=== PATIENT | male | born 2000 | race Caucasian/White ===

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

== ENCOUNTER 2022-01-14 03:24 | Emergency (ER) | payer MEDICAID, OTHER ==
[~2022-01-14] VITALS: Ht 190 cm; Wt 97.7 kg
[2022-01-14 03:35] VITALS: BP 140/81
[2022-01-14] MEDS ORDERED: NALOXONE 2 MG/2 ML (NARCAN) SYR IV STA (03:55)
[2022-01-14] MEDS ORDERED: KETOROLAC 30 MG/ML VIAL IVP STA (03:55)
[2022-01-14] MEDS ORDERED: NS IV 1000 ML 1,000 ML IV SCH (04:00)
--- NOTE | 2022-01-14 04:08 | ED General ---
General Stated Complaint: SYNCOPE/BACK PAIN Source of Information: Patient, Old Records, Police Exam Limitations: Intoxication (methamphetamine abuse) History of Present Illness Date Seen by Provider: Jan 14, 2022 Time Seen by Provider: 03:28 Initial Comments 21-year-old male presenting with police in custody for medical clearance to go to shelter. He admits to using methamphetamines and states that he had not used any since Saturday morning. He denies ingesting any other substances or trying to swallow or ingest any methamphetamine tonight. He was in police custody and stated that he felt like he was going to pass out. He sat down the back of the cruiser and states he blinked his eyes and then woke back up and was having pain in his back like cramping. 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 He states he is sleepy and feels like he is having a hard time waking up. From review of his medical records he had similar presentations in August and September. He was having "seizure-like activity" with jerking of his arms and legs but he responded to voice and sternal rub as well as he was talking during his jerking movements of his head and limbs. He denies swallowing any drugs tonight or using any other substances than the Methamphetamines from Saturday. Timing/Duration: 1/2 Hour Modifying Factors: worse with Movement (makes his mid back hurt) Associated Systoms: No Chest Pain, No Cough, No Diaphoresis, No Fever/Chills, No Headaches, No Loss of Appetite, No Nausea/Vomiting, No Rash, No Shortness of Air; Syncope (reports passing out in the back of the police cruiser); No Weakness Allergies and Home Medications Allergies Uncoded Allergies: Z-Pack (Allergy, Unknown, 03/20/21) Patient Home Medication List Home Medication List Reviewed: Yes Ciprofloxacin HCl (Ciprofloxacin HCl) 500 Mg Tablet, 500 MG PO BID Prescribed by: TANYA WALLACE on 01/14/22 0434 Review of Systems Review of Systems Constitutional: see HPI EENTM: no symptoms reported Respiratory: No cough Cardiovascular: No chest pain Gastrointestinal: No nausea, No vomiting Genitourinary: decreased output Musculoskeletal: back pain (mid back pain around his kidneys) Skin: No rash Psychiatric/Neurological: See HPI Hematologic/Lymphatic: Denies Blood Clots Past Jxqxzwu-Mmawmf-Svlcjj Hx Patient Social History Substance use?: Yes Substance type: Methamphetamine, Marijuana Substance frequency: Daily Seasonal Allergies Seasonal Allergies: No Past Medical History Surgery/Hospitalization HX: Methamphetamine abuse, Dental caries Surgeries: No Respiratory: No Cardiac: No Neurological: No Genitourinary: No Gastrointestinal: No Musculoskeletal: No Endocrine: No HEENT: No Cancer: No Psychosocial: No Integumentary: No Physical Exam Vital Signs Vital Signs - First Documented 01/14/22 03:35 Temp 36.3 Pulse 84 Resp 18 B/P (MAP) 140/81 (100) Pulse Ox 99 O2 Delivery Room Air Capillary Refill : Height, Weight, BMI Height: '" Weight: lbs. oz. kg; 37.00 BMI Method: General Appearance: No Apparent Distress, Other (slow to answer questions) Eyes: Bilateral Eye PERRL, Bilateral Eye EOMI HEENT: No Moist Mucous Membranes (slightly dry mucous membranes) Neck: Full Range of Motion, Normal Inspection, Non Tender, Supple Respiratory: Chest Non Tender, Lungs Clear, Normal Breath Sounds, No Accessory Muscle Use, No Respiratory Distress Cardiovascular: Regular Rate, Rhythm, Normal Peripheral Pulses Gastrointestinal: Normal Bowel Sounds, No Pulsatile Mass, Non Tender, Soft Rectal: Deferred Back: CVA Tenderness (L), CVA Tenderness (R) Extremity: Normal Capillary Refill, Normal Inspection, No Pedal Edema Neurologic/Psychiatric: Alert, Oriented x3, psychiatric technician assistant II-XII Norm as Tested, Other (flat affect) Skin: Normal Color, Warm/Dry Progress/Results/Core Measures Suspected Sepsis SIRS Temperature: Pulse: Respiratory Rate: Laboratory Tests 01/14/22 03:55: White Blood Count 10.7 Blood Pressure / Mean: Laboratory Tests 01/14/22 03:55: Creatinine 1.06, Platelet Count 228, Total Bilirubin 1.6H Results/Orders Lab Results Laboratory Tests Test 01/14/22 03:55 01/14/22 04:00 Range/Units White Blood Count 10.7 4.3-11.0 10^3/uL Red Blood Count 5.53 H 4.30-5.52 10^6/uL Hemoglobin 15.7 13.3-17.7 g/dL Hematocrit 47 40-54 % Mean Corpuscular Volume 85 80-99 fL Mean Corpuscular Hemoglobin 28 25-34 pg Mean Corpuscular Hemoglobin Concent 34 32-36 g/dL Red Cell Distribution Width 13.6 10.0-14.5 % Platelet Count 228 130-400 10^3/uL Mean Platelet Volume 10.1 9.0-12.2 fL Neutrophils (%) (Auto) 57 42-75 % Lymphocytes (%) (Auto) 28 12-44 % Monocytes (%) (Auto) 10 0-12 % Eosinophils (%) (Auto) 5 0-10 % Basophils (%) (Auto) 1 0-10 % Neutrophils # (Auto) 6.1 1.8-7.8 X 10^3 Lymphocytes # (Auto) 3.0 1.0-4.0 X 10^3 Monocytes # (Auto) 1.1 H 0.0-1.0 X 10^3 Eosinophils # (Auto) 0.5 H 0.0-0.3 10^3/uL Basophils # (Auto) 0.1 0.0-0.1 10^3/uL Sodium Level 137 135-145 MMOL/L Potassium Level 3.9 3.6-5.0 MMOL/L Chloride Level 102 98-107 MMOL/L Carbon Dioxide Level 25 21-32 MMOL/L Anion Gap 10 5-14 MMOL/L Blood Urea Nitrogen 20 H 7-18 MG/DL Creatinine 1.06 0.60-1.30 MG/DL Estimat Glomerular Filtration Rate 104 BUN/Creatinine Ratio 19 Glucose Level 109 H 70-105 MG/DL Calcium Level 9.6 8.5-10.1 MG/DL Corrected Calcium 9.2 8.5-10.1 MG/DL Magnesium Level 2.1 1.6-2.4 MG/DL Total Bilirubin 1.6 H 0.1-1.0 MG/DL Aspartate Amino Transf (AST/SGOT) 12 5-34 U/L Alanine Aminotransferase (ALT/SGPT) 12 0-55 U/L Alkaline Phosphatase 85 40-136 U/L Total Protein 7.2 6.4-8.2 GM/DL Albumin 4.5 3.2-4.5 GM/DL Salicylates Level < 0.3 L 5.0-20.0 MG/DL Acetaminophen Level < 10 L 10-30 UG/ML Serum Alcohol < 10 <10 MG/DL Urine Color YELLOW Urine Clarity CLEAR Urine pH 6.0 5-9 Urine Specific [place] >=1.030 1.016-1.022 Urine Protein TRACE H NEGATIVE Urine Glucose (UA) NEGATIVE NEGATIVE Urine Ketones NEGATIVE NEGATIVE Urine Nitrite NEGATIVE NEGATIVE Urine Bilirubin NEGATIVE NEGATIVE Urine Urobilinogen 1.0 < = 1.0 MG/DL Urine Leukocyte Esterase NEGATIVE NEGATIVE Urine RBC (Auto) NEGATIVE NEGATIVE Urine RBC 0-2 /HPF Urine WBC 10-25 H /HPF Urine Squamous Epithelial Cells 0-2 /HPF Urine Crystals NONE /LPF Urine Bacteria FEW H /HPF Urine Casts NONE /LPF Urine Mucus MODERATE H /LPF Urine Other SPERM PRESENT /HPF Urine Culture Indicated YES Urine Opiates Screen NEGATIVE NEGATIVE Urine Oxycodone Screen NEGATIVE NEGATIVE Urine Methadone Screen NEGATIVE NEGATIVE Urine Propoxyphene Screen NEGATIVE NEGATIVE Urine Barbiturates Screen NEGATIVE NEGATIVE Ur Tricyclic Antidepressants Screen NEGATIVE NEGATIVE Urine Phencyclidine Screen NEGATIVE NEGATIVE Urine Amphetamines Screen POSITIVE H NEGATIVE Urine Methamphetamines Screen POSITIVE H NEGATIVE Urine Benzodiazepines Screen NEGATIVE NEGATIVE Urine Cocaine Screen NEGATIVE NEGATIVE Urine Cannabinoids Screen NEGATIVE NEGATIVE My Orders Orders - TANYA WALLACE MD Ua Culture If Indicated (01/14/22 03:55) Cbc With Automated Diff (01/14/22 03:55) Comprehensive Metabolic Panel (01/14/22 03:55) Alcohol (01/14/22 03:55) Drug Screen Stat (Urine) (01/14/22 03:55) Acetaminophen (01/14/22 03:55) Salicylate (01/14/22 03:55) Ed Iv/Invasive Line Start (01/14/22 03:55) Ns Iv 1000 Ml (Sodium Chloride 0.9%) (01/14/22 04:00) Naloxone Injection (Narcan Injection) (01/14/22 03:55) Ketorolac Injection (Toradol Injection) (01/14/22 03:55) Magnesium (01/14/22 04:02) Urine Culture (01/14/22 04:00) Ceftriaxone 1 Gm Pre-Mix (Rocephin 1 Gm (01/14/22 04:34) Ns Iv 1000 Ml (Sodium Chloride 0.9%) (01/14/22 04:34) Neis Cr Dna Urine Test (01/14/22 04:47) Chlamydia Trachomatis Urine (01/14/22 04:47) Vital Signs/I&O 01/14/22 01/14/22 03:35 05:14 Temp 36.3 Pulse 84 71 Resp 18 B/P (MAP) 140/81 (100) 126/63 Pulse Ox 99 99 O2 Delivery Room Air Capillary Refill : Progress Note #1: Progress Note with his complaint of back pain and feeling like he passed out will check labs and give IVF for hydration. Toradol for back pain. Check urine for infection and hydration as well as other drugs in his system. Narcan 2 mg IV in case he had narcotics in his system to be making him feel like he can not stay awake. He may also just be crashing from his methamphetamine abuse. From review of his previous ED visits in and September he had Methamphetamines in his system and was dehydrated. He was having similar symptoms of not wanting to wake up and just wanting to sleep as well as the jerking movements of his arms and legs. He had CT scan of his head in August that had motion artifact but no acute abnormality. Progress Note #2: Time: 04:18 Progress Note CBC stable without acute significant abnormality. Urinalysis is concentrated with specific gravity greater than 1.030. He did have 10-25 white blood cells few bacteria but no nitrites or leukocyte esterase in his urinalysis. A culture was reflexed due to the white blood cells and few bacteria. Continue with IV fluids and hydration while awaiting rest of labs. Patient had no significant change from administration of Narcan. Progress Note #3: Time: 04:28 Progress Note Chemistry stable without acute significant abnormality. His magnesium was normal at 2.1. His drug screen was positive for methamphetamines and amphetamines. His alcohol, acetaminophen, salicylate levels were all 0. With his urine being concentrated will give an additional liter bolus and start an antibiotic for possible urine infection. After the antibiotic and second liter of fluid will discharge patient to the custody of the police. He is medically clear and stable with signs of dehydration and methamphetamine abuse as well as possible urinary tract infection. Progress Note #4: Time: 04:48 Progress Note When updating the patient about his results he was waking up and speaking more clearly. He requested testing for sexually transmitted infection stating he was concerned that he may have a STI as he had unprotected sex recently. 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 This would be consistent with his actions of "crashing" from not sleeping and being dehydrated from his methamphetamine abuse. Progress Note #5: Time: 05:18 Progress Note Patient was not able to provide additional urine for gonorrhea and Chlamydia testing. The initial urine culture was still pending. Continue with treatment Cipro as an outpatient and encourage patient to follow-up for additional testing Departure Impression Primary Impression: Medical clearance for incarceration Additional Impressions: Methamphetamine intoxication Dehydration Bacteriuria Disposition: 01 HOME, SELF-CARE Condition: Stable Departure-Patient Inst. Decision time for Depature: 04:50 Referrals: CARL HARRIS DO (PCP/Family) Primary Care Physician Patient Instructions: Dehydration, Adult ED, Drug Abuse and Drug Addiction (DC), Methamphetamine Add. Discharge Instructions: Medically stable for incarceration Avoid methamphetamines and drug abuse. Drink plenty of water and stay well hydrated. You were given a dose of antibiotics for bacteria in your urine. Finish course of antibiotics to treat for infection in urine. Testing to culture your urine and grow out bacteria in your urine will take 2-3 days to get those results. If you need additional or different antibiotics you will get a call once those results are back with the lab. Scripts Ciprofloxacin HCl (Ciprofloxacin HCl) 500 Mg Tablet 500 MG PO BID for UTI for 5 Days, #10 TAB 0 Refills Prov: TANYA WALLACE MD 01/14/22 TANYA WALLACE MD Jan 14, 2022 04:08
[2022-01-14 04:09] LABS: BILIRUBIN,URINE NEGATIVE (NEGATIVE); CLARITY,URINE CLEAR; COLOR,URINE YELLOW; GLUCOSE, URINE (UA) NEGATIVE (NEGATIVE); KETONES,URINE NEGATIVE (NEGATIVE); LEUKOCYTE ESTERASE ,URINE NEGATIVE (NEGATIVE); NITRITE,URINE NEGATIVE (NEGATIVE); PROTEIN,URINE TRACE (NEGATIVE)
[2022-01-14 04:10] LABS: HEMATOCRIT 47 % (40-54); HEMOGLOBIN 15.7 g/dL (13.3-17.7); MEAN CORPUSCULAR HEMOGLOBIN 28 pg (25-34); MEAN CORPUSCULAR HGB CONC 34 g/dL (32-36); MEAN CORPUSCULAR VOLUME 85 fL (80-99); WHITE BLOOD COUNT 10.7 10^3/uL (4.3-11.0)
[2022-01-14 04:11] LABS: BASOPHILS # (AUTO) 0.1 10^3/uL (0.0-0.1); BASOPHILS % (AUTO) 1 % (0-10); EOSINOPHILS # (AUTO) 0.5 10^3/uL (0.0-0.3); EOSINOPHILS % (AUTO) 5 % (0-10); LYMPHOCYTES % (AUTO) 28 % (12-44); MEAN PLATELET VOLUME 10.1 fL (9.0-12.2); MONOCYTES # (AUTO) 1.1 X 10^3 (0.0-1.0); MONOCYTES % (AUTO) 10 % (0-12); NEUTROPHILS # (AUTO) 6.1 X 10^3 (1.8-7.8); NEUTROPHILS % (AUTO) 57 % (42-75); PLATELET COUNT 228 10^3/uL (130-400)
[2022-01-14 04:15] LABS: BACTERIA,URINE FEW /HPF; RBC,URINE 0-2 /HPF; SQUAMOUS EPITHELIAL CELL,UR 0-2 /HPF
[2022-01-14 04:16] LABS: URINE OTHER SPERM PRESENT /HPF
[2022-01-14 04:21] LABS: AMPHETAMINE SCREEN, URINE POSITIVE (NEGATIVE); BARBITURATE SCREEN URINE NEGATIVE (NEGATIVE); BENZODIAZEPINES SCREEN URINE NEGATIVE (NEGATIVE); CANNABINOID SCREEN, URINE NEGATIVE (NEGATIVE); COCAINE SCREEN URINE NEGATIVE (NEGATIVE); METHADONE STAT NEGATIVE (NEGATIVE); OPIATE SCREEN URINE NEGATIVE (NEGATIVE); OXYCODONE STAT NEGATIVE (NEGATIVE); PROPOXYPHENE STAT NEGATIVE (NEGATIVE); TRICYCLIC ANTIDEPRESSANTS SCRE NEGATIVE (NEGATIVE)
[2022-01-14 04:26] LABS: ALANINE AMINOTRANSFERASE 12 U/L (0-55); ALKALINE PHOSPHATASE 85 U/L (40-136); BILIRUBIN,TOTAL 1.6 MG/DL (0.1-1.0); BUN/CREATININE RATIO 19; CALCIUM 9.6 MG/DL (8.5-10.1); CARBON DIOXIDE 25 MMOL/L (21-32); CHLORIDE 102 MMOL/L (98-107); CREATININE SERUM 1.06 MG/DL (0.60-1.30); GFR ESTIMATED 104; GLUCOSE 109 MG/DL (70-105); POTASSIUM 3.9 MMOL/L (3.6-5.0); SODIUM 137 MMOL/L (135-145)
[2022-01-14 04:27] LABS: ACETAMINOPHEN < 10 UG/ML (10-30); ALBUMIN 4.5 GM/DL (3.2-4.5); SALICYLATE < 0.3 MG/DL (5.0-20.0); TOTAL PROTEIN 7.2 GM/DL (6.4-8.2)
[2022-01-14] MEDS ORDERED: NS IV 1000 ML 1,000 ML IV STA (04:34)
[2022-01-14] MEDS ORDERED: cefTRIAXone 1 GM PRE-MIX 50 ML IV STA (04:34)
[2022-01-14] MEDS ORDERED: CIPR500T5 PO (04:34)
== END 2022-01-14 05:25 | disposition home or self-care (01) ==
LOC: EDUNIT# 03:24 → ER FS 03:33
DX: F15.229 Other stimulant dependence with intoxication, unspecified; R82.71 Bacteriuria; E86.0 Dehydration; Z28.310 Unvaccinated for COVID-19
CPT/HCPCS: 36415; 80053; 80306; 81000; 83735; 85025; 87088; 87491; 87591; 99284; G0480 ×3; 80320; 80329

== ENCOUNTER 2022-02-05 22:05 | Emergency (ER) | payer MEDICAID ==
[~2022-02-05] VITALS: Ht 182.8 cm; Wt 94.8 kg
[~2022-02-05 22:05] MED LIST: CIPR500T5 PO
[2022-02-05 22:12] VITALS: BP 143/92
[2022-02-05] MEDS ORDERED: LIDOCAINE 2% VISCOUS 15 ML UDC MM ONE (22:15)
[2022-02-05] MEDS ORDERED: RX-NEO/POLYB/HC OTIC (CORTISPORIN) SUSP 10 ML BTL ONE (22:34)
[2022-02-05] MEDS ORDERED: RX-NEO/POLYB/HC OTIC (CORTISPORIN) SUSP 10 ML BTL OT STA (22:35)
--- NOTE | 2022-02-05 22:39 | ED EENT ---
History of Present Illness General Chief Complaint: Ear Problems Stated Complaint: FOREIGN BODY L EAR Nursing Triage Note: Patient states that he was mowing today when he felt like something flew into his left ear. Patient states that he felt fluttering in his ear. Patient is having pain. Source: patient Exam Limitations: no limitations History of Present Illness Date Seen by Provider: Feb 05, 2022 Time Seen by Provider: 22:09 Initial Comments 21-year-old male patient with history of asthma complaining of left ear foreign body sensation. Patient states he was mowing the grass and felt like something flew into his left ear with fluttering in his ear. Patient complaining of pain without feeling of crawling in his ear. Patient did not try to remove foreign body from his ear. Allergies and Home Medications Allergies Uncoded Allergies: Z-Pack (Allergy, Unknown, 03/20/21) Patient Home Medication List Home Medication List Reviewed: Yes Ciprofloxacin HCl (Ciprofloxacin HCl) 500 Mg Tablet, 500 MG PO BID Prescribed by: TANYA WALLACE on 01/14/22 0434 Review of Systems Review of Systems Constitutional: no symptoms reported Eyes: No Symptoms Reported Ears: See HPI Nose: no symptoms reported Mouth: no symptoms reported Throat: no symptoms reported Respiratory: no symptoms reported Cardiovascular: no symptoms reported Gastrointestinal: no symptoms reported Musculoskeletal: no symptoms reported Neurological: No Symptoms Reported All Other Systems Reviewed Negative Unless Noted: Yes Past Bywfkeg-Strtfx-Dgtaqo Hx Patient Social History Tobacco Use?: Yes Tobacco type used: Cigarettes Smoking Status: Current Everyday Smoker Substance use?: Yes Substance type: Marijuana Alcohol Use?: No Pt feels they are or have been: No Seasonal Allergies Seasonal Allergies: No Past Medical History Surgery/Hospitalization HX: Methamphetamine abuse, Dental caries Surgeries: No Respiratory: No Cardiac: No Neurological: No Genitourinary: No Gastrointestinal: No Musculoskeletal: No Endocrine: No HEENT: No Cancer: No Psychosocial: No Integumentary: No Physical Exam Vital Signs Vital Signs - First Documented 02/05/22 22:12 Temp 37.0 Pulse 102 Resp 14 B/P (MAP) 143/92 (109) Pulse Ox 100 O2 Delivery Room Air Height, Weight, BMI Height: '" Weight: lbs. oz. kg; 28.00 BMI Method: General Appearance: mild distress Eyes: bilateral eye normal inspection Ears: left ear canal normal (Erythema), left ear erythema, left ear tenderness; bilateral ear auricle normal, bilateral ear TM normal Nose: normal inspection Mouth/Throat: normal mouth inspection Neck: non-tender Cardiovascular: regular rate, rhythm, no edema Respiratory: chest non-tender, lungs clear, normal breath sounds Progress/Results/Core Measures Results/Orders My Orders Orders - CHIP EISENBERG MD Lidocaine 2% Viscous 15 Ml (Xylocaine Vi (02/05/22 22:15) Ibuprofen Tablet (Motrin Tablet) (02/05/22 22:45) Rx-Gene/Poly/Hc Otic Susp (Rx-Cortisporin (02/05/22 22:35) Rx-Gene/Poly/Hc Otic Susp (Rx-Cortisporin (02/05/22 22:34) Medications Given in ED Current Medications Medications Dose Ordered Sig/Mary Ellen Route Start Time Stop Time Status Last Admin Dose Admin Lidocaine HCl 5 ml ONCE ONCE MM 02/05/22 22:15 02/05/22 22:16 DC 02/05/22 22:19 5 ML Vital Signs/I&O 02/05/22 22:12 Temp 37.0 Pulse 102 Resp 14 B/P (MAP) 143/92 (109) Pulse Ox 100 O2 Delivery Room Air Blood Pressure Mean: 109 Progress Progress Note : Progress Note Evaluation of patient in ER showed 21-year-old male patient with foreign body sensation in left ear. Patient had ear irrigation without any return of foreign. Patient had mild erythema and edema of ear canal and treated for otitis externa with Cortisporin otic 4 drops in left ear in ER and remaining of the medicine dispensed for using 4 times daily for 5 days. Departure Impression Primary Impression: Left otitis externa Qualified Codes: H60.92 - Unspecified otitis externa, left ear Disposition: HOME, SELF-CARE Condition: Stable Departure-Patient Inst. Referrals: CARL HARRIS DO (PCP/Family) Primary Care Physician Patient Instructions: How to Use Ear Drops, Outer Ear Infection Add. Discharge Instructions: Use dispensed eardrop 4 drops in left ear every 6 hours for 5 days May take [id number] Tylenol or ibuprofen as needed for pain Follow-up with primary care physician return to ER as needed All discharge instructions reviewed with patient and/or family. Voiced understanding. CHIP EISENBERG MD Feb 05, 2022 22:39
[2022-02-05] MEDS ORDERED: IBUPROFEN 800 MG (MOTRIN) TAB PO ONE (22:45)
== END 2022-02-05 22:43 | disposition home or self-care (01) ==
LOC: EDUNIT# 22:05 → ER FS 22:07
DX: H60.92 Unspecified otitis externa, left ear (principal); F17.210 Nicotine dependence, cigarettes, uncomplicated; Z88.1 Allergy status to other antibiotic agents; Z28.310 Unvaccinated for COVID-19
CPT/HCPCS: 99283

== ENCOUNTER 2022-04-23 03:06 | Emergency (ER) | payer MEDICAID ==
[~2022-04-23] VITALS: Ht 185.4 cm; Wt 94.8 kg
--- NOTE | 2022-04-23 03:27 | ED Abdominal Pain ---
General Chief Complaint: Abdominal/GI Problems Stated Complaint: SIDE PAIN History of Present Illness Date Seen by Provider: Apr 23, 2022 Time Seen by Provider: 03:25 Initial Comments 21-year-old male presents to ER with complaints of right upper abdominal pain. Started about 5 minutes prior to admission here. Patient felt like maybe it was just a bowel movement. He did have a bowel movement here in the ER states he felt better but is still having that pain. No nausea. Ate a bunch of rice and beans yesterday. Denies any chest pain shortness of breath. Does smoke. Occasionally smokes some weed. He used to use meth but states he does not use anymore. No alcohol. No fever or chills. No cough. No pain with urination. Allergies and Home Medications Allergies Uncoded Allergies: Z-Pack (Allergy, Unknown, 03/20/21) Patient Home Medication List Home Medication List Reviewed: Yes No Active Prescriptions or Reported Meds Review of Systems Review of Systems Constitutional: see HPI Past Gytsgtl-Jlrhip-Lsthly Hx Patient Social History Tobacco Use?: Yes Smoking Status: Current Everyday Smoker Seasonal Allergies Seasonal Allergies: No Past Medical History Surgery/Hospitalization HX: Methamphetamine abuse, Dental caries Surgeries: No Respiratory: No Cardiac: No Neurological: No Genitourinary: No Gastrointestinal: No Musculoskeletal: No Endocrine: No HEENT: No Cancer: No Psychosocial: No Integumentary: No Physical Exam Vital Signs Vital Signs - First Documented 04/23/22 03:08 Temp 36.3 Pulse 130 Resp 20 B/P (MAP) 152/97 (115) Pulse Ox 100 O2 Delivery Room Air Capillary Refill : Height/Weight/BMI Height: '" Weight: lbs. oz. kg; 28.00 BMI Method: General Appearance: WD/WN, mild distress HEENT: PERRL/EOMI Neck: non-tender, supple Respiratory: lungs clear, normal breath sounds Cardiovascular: regular rate, rhythm, no murmur Gastrointestinal: normal bowel sounds, guarding, tenderness (right upper quadrant. ) Progress/Results/Core Measures Results/Orders My Orders Orders - JOHN BENÍTEZ MD Ct Abdomen Wo (04/23/22 03:27) Ed Iv/Invasive Line Start (04/23/22 03:28) Cbc And Manual Diff (04/23/22 03:28) Comprehensive Metabolic Panel (04/23/22 03:28) Lipase (04/23/22 03:28) Hs C Reactive Protein (04/23/22 03:28) Vital Signs/I&O 04/23/22 04/23/22 03:08 03:35 Temp 36.3 36.3 Pulse 130 101 Resp 20 20 B/P (MAP) 152/97 (115) 130/80 Pulse Ox 100 100 O2 Delivery Room Air Room Air Progress Progress Note : Time: 03:50 Progress Note Patient was seen and examined. We ordered CT PE and lab work. Patient did request to discharge out AMA. We discussed that AMA meant that if there is some wrong he could be worse and delaying diagnosis could cause worsening outcome. Patient stated he did not like to take his chances. Patient signed the form. Patient left AMA Departure Impression Primary Impression: Abdominal pain Disposition: AGAINST MEDICAL ADVICE Condition: Against Medical Advice Departure-Patient Inst. Decision time for Depature: 04:00 Referrals: CARL HARRIS DO (PCP/Family) Primary Care Physician Scripts No Active Prescriptions or Reported Meds JOHN BENÍTEZ MD Apr 23, 2022 03:26
[2022-04-23 03:35] VITALS: BP 130/80
== END 2022-04-23 03:35 | disposition left against medical advice (07) ==
LOC: EDUNIT# 03:06 → ER FS 03:09
DX: R10.11 Right upper quadrant pain (principal); F17.200 Nicotine dependence, unspecified, uncomplicated; Z28.310 Unvaccinated for COVID-19
CPT/HCPCS: 99281

== ENCOUNTER 2022-05-15 | Emergency (ER) | payer MEDICAID ==
[2022-05-15] MEDS ORDERED: morphine INJ 10 MG/ML 1ML (SYR OR VIAL) IM STA (00:13)
[2022-05-15] MEDS ORDERED: ONDANSETRON 4 MG (ZOFRAN) ORAL DISSOLVE TAB PO STA (00:13)
[2022-05-15] MEDS ORDERED: KETOROLAC 60 MG/2 ML VIAL IM ONE (00:15)
--- NOTE | 2022-05-15 00:22 | ED Abdominal Pain ---
General Chief Complaint: Abdominal/GI Problems Stated Complaint: R SIDE ABD PAIN Nursing Triage Note: Pt complaining of right side abd pain. Pt states he has known gallstones and has an appointment with a surgeon in [place] on May 24 Source of Information: Patient Exam Limitations: No Limitations History of Present Illness Date Seen by Provider: May 15, 2022 Time Seen by Provider: 00:00 Initial Comments Patient is a 22-year-old male with history of cholelithiasis scheduled for cholecystectomy in 10 days presents with right upper quadrant pain rating to shoulder blade after eating dinner this evening. Reports nausea without vomiting. Pain is moderate to severe and cramping. No other acute symptoms or complaints. Timing/Duration: 1-3 Hours Severity/Quality: Moderate Location: Other Radiation: Other Activities at Onset: Other Modifying Factors: Improves With Other Associated Symptoms: Other Allergies and Home Medications Allergies Uncoded Allergies: Z-Pack (Allergy, Unknown, 03/20/21) Patient Home Medication List Home Medication List Reviewed: Yes Ondansetron (Ondansetron Odt) 4 Mg Tab.rapdis, 4 MG SL Q4H PRN for NAUSEA/VOMITING Prescribed by: VIV FLOYD on 05/15/2225 Tramadol HCl (Tramadol HCl) 50 Mg Tablet, 50 MG PO Q6H PRN for PAIN Prescribed by: VIV FLOYD on 05/15/2225 Review of Systems Review of Systems Constitutional: see HPI EENTM: See HPI Respiratory: See HPI Cardiovascular: No Symptoms Reported Gastrointestinal: See HPI Genitourinary: See HPI Past Pomzxaw-Htuarz-Lwjilo Hx Patient Social History Tobacco Use?: Yes Tobacco type used: Cigarettes Smoking Status: Current Everyday Smoker Use of E-Cig and/or Vaping dev: No Substance use?: No Alcohol Use?: No Immunizations Up To Date First/Initial COVID19 Vaccinat: unvaccinated Seasonal Allergies Seasonal Allergies: No Past Medical History Surgery/Hospitalization HX: Methamphetamine abuse, Dental caries, Bilat Myringotomy tubes Surgeries: No Respiratory: No Cardiac: No Neurological: No Genitourinary: No Gastrointestinal: No Musculoskeletal: No Endocrine: No HEENT: No Cancer: No Psychosocial: No Integumentary: No Physical Exam Vital Signs Vital Signs - First Documented 05/15/22 00:04 Temp 35.7 Pulse 98 Resp 18 B/P (MAP) 133/87 (102) Pulse Ox 99 O2 Delivery Room Air Capillary Refill : Less Than 3 Seconds Height/Weight/BMI Height: '" Weight: lbs. oz. kg; 27.00 BMI Method: General Appearance: no apparent distress Neck: non-tender, supple Respiratory: lungs clear Cardiovascular: normal peripheral pulses, regular rate, rhythm Gastrointestinal: soft, tenderness (RUQ tenderness) Back: normal inspection, no CVA tenderness Focused Exam Sepsis Stage: Ruled Out Progress/Results/Core Measures Results/Orders My Orders Orders - VIV FLOYD DO Cbc With Automated Diff (05/15/22 00:13) Comprehensive Metabolic Panel (05/15/22 00:13) Lipase (05/15/22 00:13) Morphine Injection (Morphine Injection (05/15/22 00:13) Ondansetron Oral Dissolve Tab (Zofran (05/15/22 00:13) Ketorolac Injection (Toradol Injection) (05/15/22 00:15) Vital Signs/I&O 05/15/22 00:04 Temp 35.7 Pulse 98 Resp 18 B/P (MAP) 133/87 (102) Pulse Ox 99 O2 Delivery Room Air Blood Pressure Mean: 102 Departure Communication (Admissions) Biliary colic with right upper quadrant pain/tenderness. Pain addressed. Will obtain hepatic function with anticipated discharge with no surgical follow-up. Impression Primary Impression: Right upper quadrant abdominal pain Additional Impression: Biliary colic Disposition: 01 HOME, SELF-CARE Condition: Stable Departure-Patient Inst. Referrals: CARL HARRIS DO (PCP/Family) Primary Care Physician Patient Instructions: Gallstones Add. Discharge Instructions: Please go home and rest. Take newly prescribed medications as directed, drink clear liquids only for the next 6 to 12 hours, avoid fatty and starchy foods and follow-up with your general surgeon as scheduled. Return to the ED if new or worsening symptoms. All discharge instructions reviewed with patient and/or family. Voiced understanding. Scripts Tramadol HCl (Tramadol HCl) 50 Mg Tablet 50 MG PO Q6H PRN for PAIN for 3 Days, #12 TAB 0 Refills Prov: VIV FLOYD DO 05/15/22 Ondansetron (Ondansetron Odt) 4 Mg Tab.rapdis 4 MG SL Q4H PRN for NAUSEA/VOMITING, #10 TAB Prov: VIV FLOYD DO 05/15/22 VIV FLOYD DO May 15, 2022:22
[2022-05-15] MEDS ORDERED: TRM50T PO (00:26)
[2022-05-15] MEDS ORDERED: ONDA4TAB11 SL (00:26)
[2022-05-15 00:34] LABS: BASOPHILS # (AUTO) 0.1 10^3/uL (0.0-0.1); BASOPHILS % (AUTO) 1 % (0-10); EOSINOPHILS # (AUTO) 0.2 10^3/uL (0.0-0.3); EOSINOPHILS % (AUTO) 3 % (0-10); HEMATOCRIT 42 % (40-54); HEMOGLOBIN 14.5 g/dL (13.3-17.7); LYMPHOCYTES # (AUTO) 2.6 10^3/uL (1.0-4.0); LYMPHOCYTES % (AUTO) 31 % (12-44); MEAN CORPUSCULAR HEMOGLOBIN 29 pg (25-34); MEAN CORPUSCULAR HGB CONC 35 g/dL (32-36); MEAN CORPUSCULAR VOLUME 85 fL (80-99); MEAN PLATELET VOLUME 9.3 fL (9.0-12.2); MONOCYTES # (AUTO) 1.2 10^3/uL (0.0-1.0); MONOCYTES % (AUTO) 15 % (0-12); NEUTROPHILS # (AUTO) 4.3 10^3/uL (1.8-7.8); NEUTROPHILS % (AUTO) 51 % (42-75); PLATELET COUNT 209 10^3/uL (130-400); WHITE BLOOD COUNT 8.4 10^3/uL (4.3-11.0)
[2022-05-15 01:02] LABS: BILIRUBIN,TOTAL 1.4 MG/DL (0.1-1.0); CALCIUM 9.9 MG/DL (8.5-10.1); CREATININE SERUM 1.08 MG/DL (0.60-1.30); POTASSIUM 4.5 MMOL/L (3.6-5.0)
[2022-05-15 01:03] LABS: ALBUMIN 4.4 GM/DL (3.2-4.5); TOTAL PROTEIN 7.1 GM/DL (6.4-8.2)
[2022-05-15 01:12] VITALS: BP 133/87
[2022-05-15] MEDS ORDERED: oxyCODONE/APAP 5/325MG (PERCOCET 5) TABLET PO ONE (01:15)
== END 2022-05-15 01:15 | disposition home or self-care (01) ==
LOC: EDUNIT# → ER FS 00:01
DX: K80.50 Calculus of bile duct without cholangitis or cholecystitis without obstruction (principal); F17.210 Nicotine dependence, cigarettes, uncomplicated; Z28.310 Unvaccinated for COVID-19
CPT/HCPCS: 36415; 80053; 83690; 85025

== ENCOUNTER 2022-06-14 20:25 | Emergency (ER) | payer MEDICAID ==
[~2022-06-14] VITALS: Ht 188 cm; Wt 103.5 kg
[~2022-06-14 20:25] MED LIST changes: +ONDA4TAB11 SL; +TRM50T PO
[2022-06-14 20:37] VITALS: BP 152/94
--- NOTE | 2022-06-14 20:52 | ED Abdominal Pain ---
General Chief Complaint: Abdominal/GI Problems Stated Complaint: ABD PAIN History of Present Illness Date Seen by Provider: Jun 14, 2022 Time Seen by Provider: 20:40 Initial Comments 22-year-old male with PMH of cholelithiasis, is here with complaints of right upper quadrant pain that has been going on for the past few months. Patient was supposed to have surgery on May 09 to remove his gallbladder at [facility]. But patient went outside to smoke and the hospital would not allow him to be readmitted since he left without telling anybody, and his surgery was canceled. Patient is supposed to have another appointment set up with the surgeon at [place], but he has not yet been able to do that. Patient has finished all his tramadol at home and has come to the ER recently and received a tramadol packet for his pain. Patient states that he has no money because he has not been able to work due to this issue, and he does not have ibuprofen or Tylenol at home and cannot afford it. Denies diarrhea, chest pain, palpitations, fever. Patient is refusing imaging and labs and only wants pain control. Allergies and Home Medications Allergies Uncoded Allergies: Z-Pack (Allergy, Unknown, 03/20/21) Patient Home Medication List Home Medication List Reviewed: Yes Ondansetron (Ondansetron Odt) 4 Mg Tab.rapdis, 4 MG SL Q4H PRN for NAUSEA/VOMITING Prescribed by: VIV FLOYD on 05/15/2225 Tramadol HCl (Tramadol HCl) 50 Mg Tablet, 50 MG PO Q6H PRN for PAIN Prescribed by: VIV FLOYD on 05/15/22 002 Review of Systems Review of Systems Constitutional: no symptoms reported EENTM: No Symptoms Reported Respiratory: No Symptoms Reported Cardiovascular: No Symptoms Reported Gastrointestinal: Abdominal Pain Genitourinary: No Symptoms Reported Musculoskeletal: no symptoms reported Skin: no symptoms reported Psychiatric/Neurological: No Symptoms Reported Endocrine: No Symptoms Reported Hematologic/Lymphatic: No Symptoms Reported Past Btfzeie-Nsekgc-Hovqaz Hx Immunizations Up To Date First/Initial COVID19 Vaccinat: unvaccinated Seasonal Allergies Seasonal Allergies: No Past Medical History Surgery/Hospitalization HX: Methamphetamine abuse, Dental caries, Bilat Myringotomy tubes Surgeries: No Respiratory: No Cardiac: No Neurological: No Genitourinary: No Gastrointestinal: No Musculoskeletal: No Endocrine: No HEENT: No Cancer: No Psychosocial: No Integumentary: No Physical Exam Vital Signs Vital Signs - First Documented 06/14/22 20:37 Temp 36.4 Pulse 109 Resp 16 B/P (MAP) 152/94 (113) Capillary Refill : Height/Weight/BMI Height: '" Weight: lbs. oz. kg; 27.00 BMI Method: General Appearance: moderate distress HEENT: PERRL/EOMI, normal ENT inspection Neck: non-tender, full range of motion, supple, normal inspection Respiratory: lungs clear, normal breath sounds Cardiovascular: regular rate, rhythm Gastrointestinal: normal bowel sounds, soft, no organomegaly, tenderness (In R UQ) Back: normal inspection, no CVA tenderness Neurologic/Psychiatric: alert, normal mood/affect, oriented x 3 Skin: normal color Progress/Results/Core Measures Results/Orders My Orders Orders - PAIGE HUMPHREYS MD Tramadol Tablet (Ultram Tablet) (06/14/22 21:15) Rx-Tramadol Hcl (Rx-Ultram) (06/14/22 21:13) Medications Given in ED Current Medications Medications Dose Ordered Sig/Mary Ellen Route Start Time Stop Time Status Last Admin Dose Admin Tramadol HCl 50 mg ONCE ONCE PO 06/14/22 21:15 06/14/22 21:16 DC 06/14/22 21:23 50 MG Vital Signs/I&O 06/14/22 20:37 Temp 36.4 Pulse 109 Resp 16 B/P (MAP) 152/94 (113) Progress Progress Note : Progress Note 1. ACUTE ON CHRONIC OAIN FOR CHOLELITHIASIS: -Patient is refusing imaging and labs, and does not want transfer to any facility. Refusal signed and placed in chart. Patient wants to go home after having some pain medication. -Tramadol stat with take-home tramadol pack -Follow-up with surgery clinic [facility] - Pt told he will not receive Tramadol again the next time he comes, for pain as this is his second time. The root cause needs to be addressed and that can only be done with a surgeon, and he needs to take responsibility to set up that appointment [facility]ick[facility]. -The patient was seen in the ED, and treated appropriately to presentation at a specific point in time. Patient is informed that there is a possibility that disease and illness can evolve and change in acuity rapidly or slowly after patient is discharged from the ER. Precautionary advice given to the patient for immediate return to ER if symptoms worsen or do not resolve, and to seek emergency care sooner rather than later. Pt also advised on the importance of PCP follow up and compliance with management and follow up plan with PCP and/or specialist, as this is part of the management plan. Pt verbally expressed understanding. Departure Impression Primary Impression: Cholelithiasis Disposition: 01 HOME, SELF-CARE Condition: Stable Departure-Patient Inst. Referrals: CARL HARRIS DO (PCP/Family) Primary Care Physician Patient Instructions: Gallstones, Gallbladder Diet Add. Discharge Instructions: -Tramadol stat with take-home tramadol pack -Follow-up with surgery clinic [facility] - Pt told he will not receive Tramadol again the next time he comes, for pain as this is his second time. The root cause needs to be addressed and that can only be done with a surgeon, and he needs to take responsibility to set up that appointment erick[facility]. - Gallbladder diet info sent with pt. All discharge instructions reviewed with patient and/or family. Voiced understanding. PAIGE HUMPHREYS MD Jun 14, 2022 20:51
== END 2022-06-14 21:43 | disposition left against medical advice (07) ==
LOC: EDUNIT# 20:25 → ER FS 20:26
DX: K80.20 Calculus of gallbladder without cholecystitis without obstruction (principal); F17.200 Nicotine dependence, unspecified, uncomplicated; Z28.310 Unvaccinated for COVID-19
CPT/HCPCS: 99281

== ENCOUNTER 2022-06-16 02:58 | Emergency (ER) | payer MEDICAID ==
[~2022-06-16] VITALS: Ht 185 cm; Wt 103.0 kg
--- NOTE | 2022-06-16 03:11 | ED Abdominal Pain ---
General Chief Complaint: Abdominal/GI Problems Stated Complaint: GALL STONES Nursing Triage Note: Patient presents to the ER [facility] via EMS secondary to complaints of abdominal pain. Patient advised he was supposed to have his gallbladder removed on 06/08 but was unable to have his surgery secondary to thc in his system. EMS advised that the patient recieved 50mcg Fentanyl and 4mg zofran prior to arrival. Patient current rates pain at a 5/10. Source of Information: Patient, EMS Exam Limitations: No Limitations History of Present Illness Date Seen by Provider: Jun 16, 2022 Time Seen by Provider: 02:57 Initial Comments 22-year-old male with past medical history of cholelithiasis coming in due to right upper quadrant abdominal pain.'s been going on for well over a month, and has surgery scheduled the beginning of May, but stepped outside at [facility] to smoke, and they canceled the surgery and made him leave. Has been unable to get it out since then. Has been to the ER a few times since then here for this pain. Was here yesterday, and at that time had not taken any Tylenol or ibuprofen at home due to him stating he does not have money because he does not have a job. He was sent home with a tramadol take-home pack. He took a tramadol before coming in [facility]. The pain is moderate, constant, right upper quadrant, sharp. Worse with eating, better with rest. Denies any vomiting or diarrhea. Also denies any fever. Of note, he ate dinner last night with no change to his pain, did not make it worse. He states he had pork chops and some other items as well. Allergies and Home Medications Allergies Uncoded Allergies: Z-Pack (Allergy, Unknown, 03/20/21) Patient Home Medication List Home Medication List Reviewed: Yes Ketorolac Tromethamine (Ketorolac Tromethamine) 10 Mg Tablet, 10 MG PO Q8H PRN for PAIN-SEVERE (8-10) Prescribed by: JOON PLUMMER on 06/16/22 0339 Ondansetron (Ondansetron Odt) 4 Mg Tab.rapdis, 4 MG SL Q4H PRN for NAUSEA/VOMITING Prescribed by: VIV FLOYD on 05/15/22 0026 Ondansetron (Ondansetron Odt) 4 Mg Tab.rapdis, 4 MG SL Q6H PRN for NAUSEA/VOMITING Prescribed by: JOON PLUMMER on 06/16/22 0339 Tramadol HCl (Tramadol HCl) 50 Mg Tablet, 50 MG PO Q6H PRN for PAIN Prescribed by: VIV FLOYD on 05/15/22 0026 Review of Systems Review of Systems Constitutional: No fever EENTM: No Symptoms Reported Respiratory: No Symptoms Reported Cardiovascular: No Symptoms Reported Gastrointestinal: See HPI Genitourinary: No Symptoms Reported Musculoskeletal: no symptoms reported Skin: no symptoms reported Psychiatric/Neurological: No Symptoms Reported Endocrine: No Symptoms Reported Hematologic/Lymphatic: No Symptoms Reported All Other Systems Reviewed Negative Unless Noted: Yes Past Lpnmmyl-Eqcogj-Qihmoj Hx Patient Social History Tobacco Use?: Yes Tobacco type used: Cigarettes Smoking Status: Current Everyday Smoker Substance use?: Yes Substance type: Marijuana Alcohol Use?: Yes Alcohol Frequency: Once in a while Immunizations Up To Date First/Initial COVID19 Vaccinat: unvaccinated Second COVID19 Vaccination Mike: unvaccinated Third COVID19 Vaccination Date: unvaccinated Seasonal Allergies Seasonal Allergies: No Past Medical History Surgery/Hospitalization HX: tubes in ears Surgeries: Yes Respiratory: No Cardiac: No Neurological: No Genitourinary: No Gastrointestinal: No Musculoskeletal: No Endocrine: No HEENT: No Cancer: No Psychosocial: No Integumentary: No Physical Exam Vital Signs Vital Signs - First Documented 06/16/22 02:58 Temp 36.6 Pulse 79 Resp 18 B/P (MAP) 143/80 (101) Pulse Ox 98 O2 Delivery Room Air Capillary Refill : Less Than 3 Seconds Height/Weight/BMI Height: '" Weight: lbs. oz. kg; 30.00 BMI Method: General Appearance: WD/WN, no apparent distress HEENT: PERRL/EOMI, normal ENT inspection, pharynx normal Neck: non-tender, full range of motion, supple Respiratory: chest non-tender, lungs clear, normal breath sounds, no respiratory distress, no accessory muscle use Cardiovascular: regular rate, rhythm, no edema, no murmur Gastrointestinal: normal bowel sounds, soft; No distended, No guarding, No rebound; tenderness Extremities: normal range of motion, non-tender, normal inspection, no pedal edema, no calf tenderness, normal capillary refill Back: normal inspection, no CVA tenderness Neurologic/Psychiatric: no motor/sensory deficits, alert, normal mood/affect Skin: normal color, warm/dry Lymphatic: no adenopathy Progress/Results/Core Measures Results/Orders Lab Results Laboratory Tests Test 06/16/22 03:06 Range/Units White Blood Count 12.2 H 4.3-11.0 10^3/uL Red Blood Count 5.36 4.30-5.52 10^6/uL Hemoglobin 15.6 13.3-17.7 g/dL Hematocrit 45 40-54 % Mean Corpuscular Volume 83 80-99 fL Mean Corpuscular Hemoglobin 29 25-34 pg Mean Corpuscular Hemoglobin Concent 35 32-36 g/dL Red Cell Distribution Width 12.5 10.0-14.5 % Platelet Count 253 130-400 10^3/uL Mean Platelet Volume 9.8 9.0-12.2 fL Sodium Level 138 135-145 MMOL/L Potassium Level 4.3 3.6-5.0 MMOL/L Chloride Level 100 98-107 MMOL/L Carbon Dioxide Level 27 21-32 MMOL/L Anion Gap 11 5-14 MMOL/L Blood Urea Nitrogen 23 H 7-18 MG/DL Creatinine 1.09 0.60-1.30 MG/DL Estimat Glomerular Filtration Rate 100 BUN/Creatinine Ratio 21 Glucose Level 104 70-105 MG/DL Calcium Level 9.6 8.5-10.1 MG/DL Corrected Calcium 9.3 8.5-10.1 MG/DL Total Bilirubin 0.6 0.1-1.0 MG/DL Aspartate Amino Transf (AST/SGOT) 11 5-34 U/L Alanine Aminotransferase (ALT/SGPT) 11 0-55 U/L Alkaline Phosphatase 81 40-136 U/L Total Protein 7.3 6.4-8.2 GM/DL Albumin 4.4 3.2-4.5 GM/DL Lipase 26 8-78 U/L My Orders Orders - JOON PLUMMER MD Cbc No Diff (06/16/22 03:08) Comprehensive Metabolic Panel (06/16/22 03:08) Lipase (06/16/22 03:08) Protime With Inr (06/16/22 03:08) Ketorolac Injection (Toradol Injection) (06/16/22 03:15) Ondansetron Injection (Zofran Injectio (06/16/22 03:15) Medications Given in ED Current Medications Medications Dose Ordered Sig/Mary Ellen Route Start Time Stop Time Status Last Admin Dose Admin Ketorolac Tromethamine 15 mg ONCE ONCE IVP 06/16/22 03:15 06/16/22 03:16 DC 06/16/22 03:18 15 MG Ondansetron HCl 4 mg ONCE ONCE IVP 06/16/22 03:15 06/16/22 03:16 DC 06/16/22 03:18 4 MG Vital Signs/I&O 06/16/22 02:58 Temp 36.6 Pulse 79 Resp 18 B/P (MAP) 143/80 (101) Pulse Ox 98 O2 Delivery Room Air Blood Pressure Mean: 101 Progress Progress Note : Progress Note 22-year-old male presenting for right upper quadrant abdominal pain. ABCs were intact and vitals were stable on presentation. Physical exam with some right upper quadrant tenderness but no signs of peritonitis. I personally did a [id number] ultrasound showing distended gallbladder with some slight old gallstones, no pericholecystic fluid, no gallbladder wall thickening. Clinically not consistent with cholecystitis. An IV was placed and basic labs were obtained. EMS gave him 50 mcg of fentanyl for pain. We give him Zofran as well as IV Toradol. Patient given outpatient order for ultrasound for formal evaluation so he can follow-up with our surgeon as well. Departure Impression Primary Impression: Biliary colic Disposition: HOME, SELF-CARE Condition: Stable Departure-Patient Inst. Decision time for Depature: 04:10 Referrals: WANDY LADD DO CARL HARRIS DO (PCP/Family) Primary Care Physician Patient Instructions: Gallstones Add. Discharge Instructions: I recommend calling Dr. Ladd on Saturday to discuss getting an appointment to potentially get your gallbladder out. His office often is not as busy as the [place] physicians, and likely you could get taken care of sooner. Take the PO toradol for pain (sent to your pharmacy) as well as tylenol as needed. Do not mix the toradol with ibuprofen or naproxen. After you run out of toradol you can take those other meds again. Please be sure to call the scheduling office at [phone] to schedule an outpatient ultrasound as soon as possible. This likely will help neurosurgeon follow-up with you faster so you can get your gallbladder removed to fix the problem. Scripts Ondansetron (Ondansetron Odt) 4 Mg Tab.rapdis 4 MG SL Q6H PRN for NAUSEA/VOMITING for 5 Days, #20 TAB Prov: JOON PLUMMER MD 06/16/22 Ketorolac Tromethamine (Ketorolac Tromethamine) 10 Mg Tablet 10 MG PO Q8H PRN for PAIN-SEVERE (8-10) for 4 Days, #12 TAB Prov: JOON PLUMMER MD 06/16/22 Work/School Note: Work Release Form Date Seen in the Emergency Department: Jun 16, 2022 Return to Work: Jun 18, 2022 Restrictions: No Restrictions JOON PLUMMER MD Jun 16, 2022 03:11
[2022-06-16 03:12] LABS: HEMATOCRIT 45 % (40-54); HEMOGLOBIN 15.6 g/dL (13.3-17.7); MEAN CORPUSCULAR HEMOGLOBIN 29 pg (25-34); MEAN CORPUSCULAR HGB CONC 35 g/dL (32-36); MEAN CORPUSCULAR VOLUME 83 fL (80-99); MEAN PLATELET VOLUME 9.8 fL (9.0-12.2); PLATELET COUNT 253 10^3/uL (130-400); WHITE BLOOD COUNT 12.2 10^3/uL (4.3-11.0)
[2022-06-16] MEDS ORDERED: ONDANSETRON 4 MG/2 ML (SDV) Z0FRAN IVP ONE (03:15)
[2022-06-16] MEDS ORDERED: KETOROLAC 15 MG/ML VIAL IVP ONE (03:15)
[2022-06-16 03:35] LABS: ALBUMIN 4.4 GM/DL (3.2-4.5); BILIRUBIN,TOTAL 0.6 MG/DL (0.1-1.0); CALCIUM 9.6 MG/DL (8.5-10.1); CREATININE SERUM 1.09 MG/DL (0.60-1.30); POTASSIUM 4.3 MMOL/L (3.6-5.0); TOTAL PROTEIN 7.3 GM/DL (6.4-8.2)
[2022-06-16] MEDS ORDERED: KETO10TA PO (03:39)
[2022-06-16] MEDS ORDERED: ONDA4TAB11 SL (03:39)
[2022-06-16 03:49] VITALS: BP 143/80
== END 2022-06-16 04:01 | disposition home or self-care (01) ==
LOC: ER FS 02:58
DX: K80.50 Calculus of bile duct without cholangitis or cholecystitis without obstruction (principal); F17.210 Nicotine dependence, cigarettes, uncomplicated
CPT/HCPCS: 80053; 83690; 99283

== ENCOUNTER 2022-07-22 19:16 | Emergency (ER) | payer MEDICAID ==
[~2022-07-22] VITALS: Ht 187.9 cm; Wt 108.9 kg
[~2022-07-22 19:16] MED LIST changes: +KETO10TA PO
[2022-07-22 19:44] LABS: BILIRUBIN,URINE NEGATIVE (NEGATIVE); CLARITY,URINE CLEAR; COLOR,URINE YELLOW; GLUCOSE, URINE (UA) NEGATIVE (NEGATIVE); KETONES,URINE NEGATIVE (NEGATIVE); LEUKOCYTE ESTERASE ,URINE NEGATIVE (NEGATIVE); NITRITE,URINE NEGATIVE (NEGATIVE); PH,URINE 5.5 (5-9); PROTEIN,URINE NEGATIVE (NEGATIVE)
[2022-07-22] MEDS ORDERED: NS IV 1000 ML 1,000 ML IV SCH (19:45)
[2022-07-22] MEDS ORDERED: ONDANSETRON 4 MG/2 ML (SDV) Z0FRAN IVP ONE (19:45)
[2022-07-22 19:46] LABS: BACTERIA,URINE NEGATIVE /HPF
[2022-07-22 19:49] LABS: BASOPHILS # (AUTO) 0.1 10^3/uL (0.0-0.1); BASOPHILS % (AUTO) 1 % (0-10); EOSINOPHILS # (AUTO) 0.7 10^3/uL (0.0-0.3); EOSINOPHILS % (AUTO) 7 % (0-10); HEMATOCRIT 43 % (40-54); HEMOGLOBIN 14.6 g/dL (13.3-17.7); LYMPHOCYTES # (AUTO) 4.2 10^3/uL (1.0-4.0); LYMPHOCYTES % (AUTO) 40 % (12-44); MEAN CORPUSCULAR HEMOGLOBIN 29 pg (25-34); MEAN CORPUSCULAR HGB CONC 34 g/dL (32-36); MEAN CORPUSCULAR VOLUME 86 fL (80-99); MEAN PLATELET VOLUME 9.3 fL (9.0-12.2); MONOCYTES # (AUTO) 1.1 10^3/uL (0.0-1.0); MONOCYTES % (AUTO) 10 % (0-12); NEUTROPHILS # (AUTO) 4.3 10^3/uL (1.8-7.8); NEUTROPHILS % (AUTO) 41 % (42-75); PLATELET COUNT 223 10^3/uL (130-400); WHITE BLOOD COUNT 10.5 10^3/uL (4.3-11.0)
[2022-07-22 19:56] LABS: AMPHETAMINE SCREEN, URINE POSITIVE (NEGATIVE)
[2022-07-22 19:57] LABS: BARBITURATE SCREEN URINE NEGATIVE (NEGATIVE); BENZODIAZEPINES SCREEN URINE NEGATIVE (NEGATIVE); CANNABINOID SCREEN, URINE NEGATIVE (NEGATIVE); COCAINE SCREEN URINE NEGATIVE (NEGATIVE); METHADONE STAT NEGATIVE (NEGATIVE); OPIATE SCREEN URINE NEGATIVE (NEGATIVE); OXYCODONE STAT NEGATIVE (NEGATIVE); PROPOXYPHENE STAT NEGATIVE (NEGATIVE); TRICYCLIC ANTIDEPRESSANTS SCRE NEGATIVE (NEGATIVE)
--- NOTE | 2022-07-22 20:06 | Diagnostic Imaging Report ---
PROCEDURE: CT head without contrast. TECHNIQUE: Multiple contiguous axial images were obtained through the brain without the use of intravenous contrast. Auto Exposure Controls were utilized during the CT exam to meet ALARA standards for radiation dose reduction. INDICATION: Dizziness The ventricles are normal in size, shape and position. There are no masses or hemorrhages. There are no extra-axial fluid collections. IMPRESSION: Negative CT head Dictated by: Dictated on workstation # [id number]
[2022-07-22 20:11] LABS: ALBUMIN 4.1 GM/DL (3.2-4.5); BILIRUBIN,TOTAL 0.4 MG/DL (0.1-1.0); CALCIUM 9.4 MG/DL (8.5-10.1); CREATININE SERUM 0.88 MG/DL (0.60-1.30); POTASSIUM 4.2 MMOL/L (3.6-5.0); TOTAL PROTEIN 6.6 GM/DL (6.4-8.2)
--- NOTE | 2022-07-22 20:19 | ED General ---
General Chief Complaint: Dizziness/Syncope Stated Complaint: DIZZINESS/N/V Nursing Triage Note: Patient presents to the ER with complaints of being dizzy for the last week. Patient also reports vomiting for the last 2 days. Patient was seen in clinic today for this same issue. Patient reports that he tested negative for flu and covid. Source of Information: Patient Exam Limitations: No Limitations History of Present Illness Date Seen by Provider: Jul 22, 2022 Time Seen by Provider: 19:27 Initial Comments 22-year-old male patient with history of frequent emergency room visits and gallstone complaining of multiple problems. Patient complaining of intermittent episodes of dizziness for the last 1 week that getting worse for the last 2 days without relation to position of his head. Patient denies tinnitus, headache, fever and chills, chest pain, shortness of breath, focal neurodeficit. Patient complaining of 4 episodes of vomiting yesterday and 2 episodes of vomiting today and stated he was seen by his primary care physician this morning with negative COVID and flu test and had prescription for Zofran and took 1 today after eating pork chop without helping for his vomiting. Patient also complaining of spider bite to his lip and left arm with swelling. Patient had history of marijuana and methamphetamine abuse but denies using drugs anymore. Allergies and Home Medications Allergies Uncoded Allergies: Z-Pack (Allergy, Unknown, 03/20/21) Patient Home Medication List Home Medication List Reviewed: Yes Ketorolac Tromethamine (Ketorolac Tromethamine) 10 Mg Tablet, 10 MG PO Q8H PRN for PAIN-SEVERE (8-10) Prescribed by: JOON PLUMMER on 06/16/22338 Ondansetron (Ondansetron Odt) 4 Mg Tab.rapdis, 4 MG SL Q4H PRN for NAUSEA/VOMITING Prescribed by: VIV FLOYD on 05/15/2225 Ondansetron (Ondansetron Odt) 4 Mg Tab.rapdis, 4 MG SL Q6H PRN for NAUSEA/VOMITING Prescribed by: JOON PLUMMER on 06/16/22338 Tramadol HCl (Tramadol HCl) 50 Mg Tablet, 50 MG PO Q6H PRN for PAIN Prescribed by: VIV FLOYD on 05/15/2225 Review of Systems Review of Systems Constitutional: see HPI EENTM: see HPI Respiratory: see HPI Cardiovascular: see HPI Gastrointestinal: see HPI Genitourinary: see HPI Musculoskeletal: see HPI Skin: see HPI Psychiatric/Neurological: See HPI Hematologic/Lymphatic: See HPI Immunological/Allergic: see HPI All Other Systems Reviewed Negative Unless Noted: Yes Past [place]-Vtppjq-Uhscqy Hx Patient Social History Tobacco Use?: Yes Substance use?: No Additional substance use comme: Patient has had previous positives in the past although he denies use today Alcohol Use?: No Pt feels they are or have been: No Immunizations Up To Date First/Initial COVID19 Vaccinat: unvaccinated Second COVID19 Vaccination Mike: unvaccinated Third COVID19 Vaccination Date: unvaccinated Seasonal Allergies Seasonal Allergies: No Past Medical History Surgery/Hospitalization HX: tubes in ears Surgeries: Yes Respiratory: No Cardiac: No Neurological: No Genitourinary: No Gastrointestinal: No Musculoskeletal: No Endocrine: No HEENT: No Cancer: No Psychosocial: No Integumentary: No Physical Exam Vital Signs Vital Signs - First Documented 07/22/22 19:18 Temp 36.5 Pulse 95 Resp 18 B/P (MAP) 149/95 (113) Pulse Ox 99 O2 Delivery Room Air Capillary Refill : Less Than 3 Seconds Height, Weight, BMI Height: '" Weight: lbs. oz. kg; 30.00 BMI Method: General Appearance: No Apparent Distress, WD/WN HEENT: PERRL/EOMI, TMs Normal, Normal ENT Inspection, Pharynx Normal Neck: Full Range of Motion, Normal Inspection, Non Tender, Supple Respiratory: Chest Non Tender, Lungs Clear, Normal Breath Sounds, No Accessory Muscle Use, No Respiratory Distress Cardiovascular: Regular Rate, Rhythm, No Edema, No Gallop Gastrointestinal: Normal Bowel Sounds, No Organomegaly, No Pulsatile Mass, Non Tender, Soft Back: Normal Inspection, No CVA Tenderness Extremity: Normal Capillary Refill, Normal Inspection Neurologic/Psychiatric: Alert, Oriented x3, No Motor/Sensory Deficits, Normal Mood/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, 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 Norm as Tested Skin: Normal Color, Warm/Dry Lymphatic: No Adenopathy Progress/Results/Core Measures Suspected Sepsis SIRS Temperature: Pulse: 95 Respiratory Rate: 18 Laboratory Tests 07/22/22 19:45: White Blood Count 10.5 Blood Pressure 149 /95 Mean: 113 Laboratory Tests 07/22/22 19:45: Creatinine 0.88, Platelet Count 223, Total Bilirubin 0.4 Results/Orders Lab Results Laboratory Tests Test 07/22/22 19:37 07/22/22 19:45 Range/Units Urine Color YELLOW Urine Clarity CLEAR Urine pH 5.5 5-9 Urine Specific [place] 1.025 H 1.016-1.022 Urine Protein NEGATIVE NEGATIVE Urine Glucose (UA) NEGATIVE NEGATIVE Urine Ketones NEGATIVE NEGATIVE Urine Nitrite NEGATIVE NEGATIVE Urine Bilirubin NEGATIVE NEGATIVE Urine Urobilinogen 0.2 < = 1.0 MG/DL Urine Leukocyte Esterase NEGATIVE NEGATIVE Urine RBC (Auto) NEGATIVE NEGATIVE Urine RBC NONE /HPF Urine WBC NONE /HPF Urine Squamous Epithelial Cells 2-5 /HPF Urine Crystals NONE /LPF Urine Bacteria NEGATIVE /HPF Urine Casts NONE /LPF Urine Mucus NEGATIVE /LPF Urine Culture Indicated NO Urine Opiates Screen NEGATIVE NEGATIVE Urine Oxycodone Screen NEGATIVE NEGATIVE Urine Methadone Screen NEGATIVE NEGATIVE Urine Propoxyphene Screen NEGATIVE NEGATIVE Urine Barbiturates Screen NEGATIVE NEGATIVE Ur Tricyclic Antidepressants Screen NEGATIVE NEGATIVE Urine Phencyclidine Screen NEGATIVE NEGATIVE Urine Amphetamines Screen POSITIVE H NEGATIVE Urine Methamphetamines Screen POSITIVE H NEGATIVE Urine Benzodiazepines Screen NEGATIVE NEGATIVE Urine Cocaine Screen NEGATIVE NEGATIVE Urine Cannabinoids Screen NEGATIVE NEGATIVE White Blood Count 10.5 4.3-11.0 10^3/uL Red Blood Count 5.00 4.30-5.52 10^6/uL Hemoglobin 14.6 13.3-17.7 g/dL Hematocrit 43 40-54 % Mean Corpuscular Volume 86 80-99 fL Mean Corpuscular Hemoglobin 29 25-34 pg Mean Corpuscular Hemoglobin Concent 34 32-36 g/dL Red Cell Distribution Width 12.2 10.0-14.5 % Platelet Count 223 130-400 10^3/uL Mean Platelet Volume 9.3 9.0-12.2 fL Immature Granulocyte % (Auto) 1 % Neutrophils (%) (Auto) 41 L 42-75 % Lymphocytes (%) (Auto) 40 12-44 % Monocytes (%) (Auto) 10 0-12 % Eosinophils (%) (Auto) 7 0-10 % Basophils (%) (Auto) 1 0-10 % Neutrophils # (Auto) 4.3 1.8-7.8 10^3/uL Lymphocytes # (Auto) 4.2 H 1.0-4.0 10^3/uL Monocytes # (Auto) 1.1 H 0.0-1.0 10^3/uL Eosinophils # (Auto) 0.7 H 0.0-0.3 10^3/uL Basophils # (Auto) 0.1 0.0-0.1 10^3/uL Immature Granulocyte # (Auto) 0.1 0.0-0.1 10^3/uL Sodium Level 141 135-145 MMOL/L Potassium Level 4.2 3.6-5.0 MMOL/L Chloride Level 103 98-107 MMOL/L Carbon Dioxide Level 27 21-32 MMOL/L Anion Gap 11 5-14 MMOL/L Blood Urea Nitrogen 19 H 7-18 MG/DL Creatinine 0.88 0.60-1.30 MG/DL Estimat Glomerular Filtration Rate 126 BUN/Creatinine Ratio 22 Glucose Level 85 70-105 MG/DL Calcium Level 9.4 8.5-10.1 MG/DL Corrected Calcium 9.3 8.5-10.1 MG/DL Total Bilirubin 0.4 0.1-1.0 MG/DL Aspartate Amino Transf (AST/SGOT) 16 5-34 U/L Alanine Aminotransferase (ALT/SGPT) 18 0-55 U/L Alkaline Phosphatase 75 40-136 U/L Total Protein 6.6 6.4-8.2 GM/DL Albumin 4.1 3.2-4.5 GM/DL Lipase 30 8-78 U/L My Orders Orders - CHIP EISENBERG MD Comprehensive Metabolic Panel (07/22/22 19:37) Lipase (07/22/22 19:37) Ua Culture If Indicated (07/22/22 19:37) Ed Iv/Invasive Line Start (07/22/22 19:37) Cbc With Automated Diff (07/22/22 19:37) Drug Screen Stat (Urine) (07/22/22 19:37) Ct Head Wo (07/22/22 19:37) Ns Iv 1000 Ml (Sodium Chloride 0.9%) (07/22/22 19:45) Ondansetron Injection (Zofran Injectio (07/22/22 19:45) Medications Given in ED Current Medications Medications Dose Ordered Sig/Mary Ellen Route Start Time Stop Time Status Last Admin Dose Admin Ondansetron HCl 4 mg ONCE ONCE IVP 07/22/22 19:45 07/22/22 19:46 DC 07/22/22 19:49 4 MG Vital Signs/I&O 1/15/23 1/15/23 19:18 20:20 Temp 36.5 Pulse 95 95 Resp 18 18 B/P (MAP) 149/95 (113) 149/95 Pulse Ox 99 99 O2 Delivery Room Air Room Air Capillary Refill : Less Than 3 Seconds Blood Pressure Mean: 113 Progress Note : Progress Note Patient with frequent emergency room visits and multiple complaints including episodes of nonpositional dizziness for 1 week and nausea and vomiting for 2 days and a spider bite to his lip and left arm. Patient had unremarkable physical exam without any signs of bites. Patient had unremarkable CBC, CMP, UA, CT head. UDS was positive for methamphetamine and amphetamine and patient admitted to using methamphetamine 5 days ago. Patient advised to avoid eating fatty and greasy food and not using illegal drugs and follow-up with primary care physician for referral to surgeon for gallbladder treatment. Patient advised to take liquid diet for the next 24 hours and take home nausea medication. Diagnostic Imaging Diagonstic Imaging: CT (Head) Comments CT head interpreted by radiologist and reviewed by me and showed: [place] NAME: HEMALATHA JAY [facility] REC#: [id number] PT STATUS: REG ER : 2002 PHYSICIAN: CHIP EISENBERG MD ADMIT DATE: 07/22/22/ER FS Signed Date of Exam:07/22/22 CT HEAD WO PROCEDURE: CT head without contrast. TECHNIQUE: Multiple contiguous axial images were obtained through the brain without the use of intravenous contrast. Auto Exposure Controls were utilized during the CT exam to meet ALARA standards for radiation dose reduction. INDICATION: Dizziness The ventricles are normal in size, shape and position. There are no masses or hemorrhages. There are no extra-axial fluid collections. IMPRESSION: Negative CT head Dictated by: Dictated on workstation # [id number] Dict: 07/22/222003 Trans: 07/22/222004 TCB [id number] Interpreted by: BAM JOLLY MD Electronically signed by: BAM JOLLY MD 07/22/222004 Departure Impression Primary Impression: Methamphetamine abuse Additional Impressions: Nausea and vomiting Qualified Codes: R11.2 - Nausea with vomiting, unspecified Cholelithiasis Qualified Codes: K80.20 - Calculus of gallbladder without cholecystitis without obstruction Dizziness Disposition: 01 HOME, SELF-CARE Condition: Improved Departure-Patient Inst. Decision time for Depature: 20:14 Referrals: CARL HARRIS DO (PCP/Family) Primary Care Physician Patient Instructions: Dizziness, Adult ED, Gallstones ED, Methamphetamine Add. Discharge Instructions: Drink plenty of liquids No solid food for the next 24 hours Continue home nausea medication Follow-up with your primary care physician in 2 to 3 days for referral to surgeon for gallbladder surgery Do not eat fatty and greasy food Return to ER as needed All discharge instructions reviewed with patient and/or family. Voiced understanding. CHIP EISENBERG MD Jul 22, 2022 20:19
[2022-07-22 20:20] VITALS: BP 149/95
== END 2022-07-22 20:23 | disposition home or self-care (01) ==
LOC: EDUNIT# 19:16 → ER FS 19:19
DX: K80.20 Calculus of gallbladder without cholecystitis without obstruction (principal); F15.10 Other stimulant abuse, uncomplicated; Z28.310 Unvaccinated for COVID-19
CPT/HCPCS: 36415; 70450; 80053; 80306; 81000; 83690; 85025

== ENCOUNTER → 2022-07-25 | Outpatient (CLI) | payer MEDICAID ==
[~2022-07-25] VITALS: Ht 188 cm; Wt 108.9 kg
[~2022-07-25] MED LIST changes: +HYDR-3817 PO
== END | disposition home or self-care (01) ==
LOC: PREOP 08:23
PROVIDERS: ATTEND Surgery
DX: Z01.818 Encounter for other preprocedural examination (principal)

== ENCOUNTER 2022-07-26 10:06 | Day surgery (SDC) | payer MEDICAID ==
[~2022-07-26] VITALS: Ht 188 cm; Wt 108.9 kg
[~2022-07-26 10:06] MED LIST changes: -HYDR-3817 PO
[2022-07-26 10:25] VITALS: BP 131/93
--- NOTE | 2022-07-26 10:25 | Progress Note-Pre Operative ---
Pre-Operative Progress Note Date H&P Reviewed: Jul 26, 2022 Time H&P Reviewed: 10:20 History & Physical: H&P Reviewed, Patient Examed, No changes noted Pre-Operative Diagnosis: Chronic calculous cholecystitis CHRISTIAN HOFFMAN APRN Jul 26, 2022 10:25
[2022-07-26] MEDS ORDERED: HYDR-3817 PO (10:26)
--- NOTE | 2022-07-26 10:27 | Discharge Inst-Surgical ---
D/C Lap Instructions-KIDO Reconcile Patient Problems Problems Reviewed?: Yes New, Converted, or Re-Newed RX: RX on Chart Follow Up Appt in 2 weeks Activity as tolerated No driving for 24 hours No driving while on pain medications Incentive Spirometry use every 2 hours while awake Regular Diet Symptoms to Report: Fever over 101 degree F, Nausea/Vomiting Infection Signs and Symptoms to report: Increased redness, Foul odor of wound, Increased drainage Bathing instructions: May shower Operative Area Clean/Dry; Keep incision clean/dry If any problems/questions: Contact your physician or go to Emergency Room CHRISTIAN HOFFMAN APRN Jul 26, 2022 10:27
[2022-07-26] MEDS ORDERED: ACETAMINOPHEN 325 MG TABLET PO PRN (10:30)
[2022-07-26] MEDS ORDERED: HYDROcodone/APAP 5 MG/325 MG (LORTAB) TAB PO ONE (10:30)
[2022-07-26] MEDS ORDERED: morphine INJ 10 MG/ML 1ML (SYR OR VIAL) IVP PRN (10:30)
[2022-07-26] MEDS ORDERED: ONDANSETRON 4 MG/2 ML (SDV) Z0FRAN IVP PRN (10:30)
[2022-07-26 10:35] LABS: AMPHETAMINE SCREEN, URINE NEGATIVE (NEGATIVE); BARBITURATE SCREEN URINE NEGATIVE (NEGATIVE); BENZODIAZEPINES SCREEN URINE NEGATIVE (NEGATIVE); CANNABINOID SCREEN, URINE NEGATIVE (NEGATIVE); COCAINE SCREEN URINE NEGATIVE (NEGATIVE); METHADONE STAT NEGATIVE (NEGATIVE); OPIATE SCREEN URINE NEGATIVE (NEGATIVE); OXYCODONE STAT NEGATIVE (NEGATIVE); PROPOXYPHENE STAT NEGATIVE (NEGATIVE); TRICYCLIC ANTIDEPRESSANTS SCRE NEGATIVE (NEGATIVE)
[2022-07-26] MEDS ORDERED: ceFAZolin INJECTION 2,000 MG in NS (IVPB) 50 ML IV ONE (10:45)
[2022-07-26] MEDS ORDERED: LACTATED RINGERS 1,000 ML IV PRN (10:45)
== END 2022-07-26 11:25 | disposition home or self-care (01) ==
LOC: SDC 10:06
PROVIDERS: ATTEND Surgery
DX: K80.10 Calculus of gallbladder with chronic cholecystitis without obstruction (principal); F17.210 Nicotine dependence, cigarettes, uncomplicated; F17.220 Nicotine dependence, chewing tobacco, uncomplicated; Z28.310 Unvaccinated for COVID-19; Z53.29 Procedure and treatment not carried out because of patient's decision for other reasons
CPT/HCPCS: 80306; 87081

== ENCOUNTER 2022-08-31 22:34 | Emergency (ER) | payer MEDICAID ==
[~2022-08-31 22:34] MED LIST changes: +HYDR-3817 PO
--- NOTE | 2022-08-31 23:08 | ED Abdominal Pain ---
General Stated Complaint: ABD PAIN History of Present Illness Date Seen by Provider: Aug 31, 2022 Time Seen by Provider: 22:30 Initial Comments 22-year-old male with PMH of known gallbladder stones for the past 3 months, is brought in by EMS for right upper quadrant pain due to his gallbladder. Patient had been scheduled for surgery to remove his gallbladder but on the day of surgery patient was waiting too long for his turn and so he went back home without having the surgery. Patient has been having right upper quadrant pain on and off for the past 3 months. Today patient had pork chops and spaghetti for dinner and the right upper quadrant pain started soon after that. Patient has associated symptoms of nausea and chills. Denies vomiting, fever, chest pain, diarrhea, constipation, dysuria. Allergies and Home Medications Allergies Uncoded Allergies: Z-Pack (Allergy, Unknown, 03/20/21) Patient Home Medication List Home Medication List Reviewed: Yes Hydrocodone/Acetaminophen (Hydrocodone-Acetamin 7.5-325) 7.5 Mg-325 Mg Tablet, 1 EACH PO Q4H PRN for PAIN-BREAKTHROUGH Prescribed by: CHRISTIAN HOFFMAN on 07/26/22 1026 Ondansetron (Ondansetron Odt) 4 Mg Tab.rapdis, 4 MG SL Q4H PRN for NAUSEA/VOMITING Prescribed by: VIV FLOYD on 05/15/22 0026 Review of Systems Review of Systems Constitutional: chills EENTM: No Symptoms Reported Respiratory: No Symptoms Reported Cardiovascular: No Symptoms Reported Gastrointestinal: Abdominal Pain, Nausea Genitourinary: No Symptoms Reported Musculoskeletal: no symptoms reported Skin: no symptoms reported Psychiatric/Neurological: No Symptoms Reported Endocrine: No Symptoms Reported Hematologic/Lymphatic: No Symptoms Reported Physical Exam Vital Signs Vital Signs - First Documented 08/31/22 22:34 Temp 37.3 Pulse 72 Resp 18 B/P (MAP) 135/77 (96) Pulse Ox 100 O2 Delivery Room Air Capillary Refill : Height/Weight/BMI Height: '" Weight: lbs. oz. kg; BMI Method: General Appearance: WD/WN, mild distress HEENT: PERRL/EOMI Neck: non-tender, full range of motion, supple Respiratory: chest non-tender, lungs clear, normal breath sounds Cardiovascular: regular rate, rhythm Gastrointestinal: normal bowel sounds, soft, tenderness ( RUQ tenderness) Extremities: normal range of motion Back: normal inspection Neurologic/Psychiatric: alert, normal mood/affect, oriented x 3 Skin: normal color Progress/Results/Core Measures Results/Orders Lab Results Laboratory Tests Test 08/31/22 22:40 09/01/22 00:15 Range/Units White Blood Count 11.3 H 4.3-11.0 10^3/uL Red Blood Count 4.95 4.30-5.52 10^6/uL Hemoglobin 14.3 13.3-17.7 g/dL Hematocrit 43 40-54 % Mean Corpuscular Volume 86 80-99 fL Mean Corpuscular Hemoglobin 29 25-34 pg Mean Corpuscular Hemoglobin Concent 34 32-36 g/dL Red Cell Distribution Width 12.4 10.0-14.5 % Platelet Count 237 130-400 10^3/uL Mean Platelet Volume 9.9 9.0-12.2 fL Immature Granulocyte % (Auto) 0 % Neutrophils (%) (Auto) 41 L 42-75 % Lymphocytes (%) (Auto) 42 12-44 % Monocytes (%) (Auto) 9 0-12 % Eosinophils (%) (Auto) 7 0-10 % Basophils (%) (Auto) 1 0-10 % Neutrophils # (Auto) 4.6 1.8-7.8 X 10^3 Lymphocytes # (Auto) 4.8 H 1.0-4.0 X 10^3 Monocytes # (Auto) 1.0 0.0-1.0 X 10^3 Eosinophils # (Auto) 0.8 H 0.0-0.3 10^3/uL Basophils # (Auto) 0.1 0.0-0.1 10^3/uL Immature Granulocyte # (Auto) 0.0 0.0-0.1 10^3/uL Sodium Level 141 135-145 MMOL/L Potassium Level 3.9 3.6-5.0 MMOL/L Chloride Level 104 98-107 MMOL/L Carbon Dioxide Level 28 21-32 MMOL/L Anion Gap 9 5-14 MMOL/L Blood Urea Nitrogen 13 7-18 MG/DL Creatinine 1.02 0.60-1.30 MG/DL Estimat Glomerular Filtration Rate 108 BUN/Creatinine Ratio 13 Glucose Level 91 70-105 MG/DL Calcium Level 9.3 8.5-10.1 MG/DL Corrected Calcium 9.1 8.5-10.1 MG/DL Total Bilirubin 0.4 0.1-1.0 MG/DL Aspartate Amino Transf (AST/SGOT) 9 5-34 U/L Alanine Aminotransferase (ALT/SGPT) 9 0-55 U/L Alkaline Phosphatase 78 40-136 U/L Total Protein 6.6 6.4-8.2 GM/DL Albumin 4.2 3.2-4.5 GM/DL Lipase 30 8-78 U/L Urine Color YELLOW Urine Clarity CLEAR Urine pH 5.5 5-9 Urine Specific [place] 1.010 L 1.016-1.022 Urine Protein NEGATIVE NEGATIVE Urine Glucose (UA) NEGATIVE NEGATIVE Urine Ketones NEGATIVE NEGATIVE Urine Nitrite NEGATIVE NEGATIVE Urine Bilirubin NEGATIVE NEGATIVE Urine Urobilinogen 0.2 < = 1.0 MG/DL Urine Leukocyte Esterase NEGATIVE NEGATIVE Urine RBC (Auto) NEGATIVE NEGATIVE Urine RBC NONE /HPF Urine WBC NONE /HPF Urine Crystals NONE /LPF Urine Bacteria NEGATIVE /HPF Urine Casts NONE /LPF Urine Mucus NEGATIVE /LPF Urine Culture Indicated NO Urine Opiates Screen NEGATIVE NEGATIVE Urine Oxycodone Screen NEGATIVE NEGATIVE Urine Methadone Screen NEGATIVE NEGATIVE Urine Propoxyphene Screen NEGATIVE NEGATIVE Urine Barbiturates Screen NEGATIVE NEGATIVE Ur Tricyclic Antidepressants Screen NEGATIVE NEGATIVE Urine Phencyclidine Screen NEGATIVE NEGATIVE Urine Amphetamines Screen POSITIVE H NEGATIVE Urine Methamphetamines Screen POSITIVE H NEGATIVE Urine Benzodiazepines Screen NEGATIVE NEGATIVE Urine Cocaine Screen NEGATIVE NEGATIVE Urine Cannabinoids Screen NEGATIVE NEGATIVE My Orders Orders - PAIGE HUMPHREYS MD Ct Abdomen/Pelvis W (08/31/22 23:11) Iohexol Injection (Omnipaque 350 Mg/Ml 1 (08/31/22 23:30) Received Contrast (Hold Metformin- Contr (08/31/22 23:30) Ns (Ivpb) (Sodium Chloride 0.9% Ivpb Bag (08/31/22 23:30) Cbc With Automated Diff (08/31/22 23:20) Comprehensive Metabolic Panel (08/31/22 23:20) Lipase (08/31/22 23:20) Ua Culture If Indicated (08/31/22 23:20) Drug Screen Stat (Urine) (08/31/22 23:20) Ns Iv 1000 Ml (Sodium Chloride 0.9%) (08/31/22 23:30) Ondansetron Injection (Zofran Injectio (08/31/22 23:30) Ketorolac Injection (Toradol Injection) (08/31/22 23:30) Medications Given in ED Current Medications Medications Dose Ordered Sig/Mary Ellen Route Start Time Stop Time Status Last Admin Dose Admin Iohexol 80 ml ONCE ONCE IV 08/31/22 23:30 08/31/22 23:31 DC 08/31/22 22:55 80 ML Ketorolac Tromethamine 15 mg ONCE ONCE IVP 08/31/22 23:30 08/31/22 23:31 DC 08/31/22 23:00 15 MG Ondansetron HCl 4 mg ONCE ONCE IVP 08/31/22 23:30 08/31/22 23:31 DC 08/31/22 23:00 4 MG Sodium Chloride 100 ml ONCE ONCE IV 08/31/22 23:30 08/31/22 23:31 DC 08/31/22 22:55 100 ML Vital Signs/I&O 08/31/22 22:34 Temp 37.3 Pulse 72 Resp 18 B/P (MAP) 135/77 (96) Pulse Ox 100 O2 Delivery Room Air Progress Progress Note : Progress Note 1. RUQ PAIN: ACUTE ON CHRONIC CHOLELITHIASIS: METHAMPHETAMINE ABUSE - CT ABD: No acute findings. The gallbladder is not particularly abnormal by CT. If there is a suspicion for gallbladder disease producing today's symptoms, an ultrasound could be performed. - No u/s available today from [place] - CBC/ CMP: unremarkable - Lipase negative - UA: neg - UDS: Methamphetamine positive - Toradol 15mg iv/ NS IVF bolus / Zofran 4mg iv given in ER -Pt's symptoms improved - Advised not to use methamphetamines or other drugs -Follow-up with surgery clinic in the next 3 to 7 days -Follow-up with PCP in the next 3 to 5 days -The patient was seen in the ED, and treated appropriately to presentation at a specific point in time. Patient is informed that there is a possibility that disease and illness can evolve and change in acuity rapidly or slowly after patient is discharged from the ER. Precautionary advice given to the patient for immediate return to ER if symptoms worsen or do not resolve, and to seek emergency care sooner rather than later. Pt also advised on the importance of PCP follow up and compliance with management and follow up plan with PCP and/or specialist, as this is part of the management plan. Pt verbally expressed understanding. Diagnostic Imaging Diagonstic Imaging: CT Plain Films/CT/US/NM/MRI: abdomen Departure Impression Primary Impression: Right upper quadrant abdominal pain Additional Impressions: Methamphetamine abuse Cholelithiasis with acute on chronic cholecystitis without biliary obstructi on Disposition: 01 HOME, SELF-CARE Condition: Improved Departure-Patient Inst. Patient Instructions: Meth Mouth, Gallbladder Diet, Gallstones ED Add. Discharge Instructions: - Advised not to use methamphetamines or other drugs -Follow-up with surgery clinic in the next 3 to 7 days -Follow-up with PCP in the next 3 to 5 days PAIGE HUMPHREYS MD Aug 31, 2022 23:08
[2022-08-31 23:23] LABS: HEMATOCRIT 43 % (40-54); HEMOGLOBIN 14.3 g/dL (13.3-17.7); MEAN CORPUSCULAR HEMOGLOBIN 29 pg (25-34); WHITE BLOOD COUNT 11.3 10^3/uL (4.3-11.0)
[2022-08-31 23:24] LABS: BASOPHILS # (AUTO) 0.1 10^3/uL (0.0-0.1); BASOPHILS % (AUTO) 1 % (0-10); CREATININE SERUM 1.02 MG/DL (0.60-1.30); EOSINOPHILS # (AUTO) 0.8 10^3/uL (0.0-0.3); EOSINOPHILS % (AUTO) 7 % (0-10); LYMPHOCYTES # (AUTO) 4.8 X 10^3 (1.0-4.0); LYMPHOCYTES % (AUTO) 42 % (12-44); MEAN CORPUSCULAR HGB CONC 34 g/dL (32-36); MEAN CORPUSCULAR VOLUME 86 fL (80-99); MEAN PLATELET VOLUME 9.9 fL (9.0-12.2); MONOCYTES % (AUTO) 9 % (0-12); NEUTROPHILS # (AUTO) 4.6 X 10^3 (1.8-7.8); NEUTROPHILS % (AUTO) 41 % (42-75); PLATELET COUNT 237 10^3/uL (130-400); POTASSIUM 3.9 MMOL/L (3.6-5.0)
[2022-08-31 23:25] LABS: ALBUMIN 4.2 GM/DL (3.2-4.5); BILIRUBIN,TOTAL 0.4 MG/DL (0.1-1.0); CALCIUM 9.3 MG/DL (8.5-10.1); TOTAL PROTEIN 6.6 GM/DL (6.4-8.2)
[2022-08-31] MEDS ORDERED: NS IV 1000 ML 1,000 ML IV SCH (23:30)
[2022-08-31] MEDS ORDERED: ONDANSETRON 4 MG/2 ML (SDV) Z0FRAN IVP ONE (23:30)
[2022-08-31] MEDS ORDERED: IOHEXOL 350 MG/ML 100 ML (OMNIPAQUE 350) VIAL IV ONE (23:30)
[2022-08-31] MEDS ORDERED: KETOROLAC 15 MG/ML VIAL IVP ONE (23:30)
[2022-08-31] MEDS ORDERED: NS 100 ML (IVPB) BAG IV ONE (23:30)
[2022-08-31] MEDS ORDERED: HOLD METFORMIN - RECEIVED CONTRAST 20 ML VIAL IV SCH (23:30)
[2022-09-01 00:20] LABS: BILIRUBIN,URINE NEGATIVE (NEGATIVE); CLARITY,URINE CLEAR; COLOR,URINE YELLOW; GLUCOSE, URINE (UA) NEGATIVE (NEGATIVE); KETONES,URINE NEGATIVE (NEGATIVE); LEUKOCYTE ESTERASE ,URINE NEGATIVE (NEGATIVE); NITRITE,URINE NEGATIVE (NEGATIVE); PH,URINE 5.5 (5-9); PROTEIN,URINE NEGATIVE (NEGATIVE)
[2022-09-01 00:24] LABS: BACTERIA,URINE NEGATIVE /HPF
[2022-09-01 00:32] LABS: AMPHETAMINE SCREEN, URINE POSITIVE (NEGATIVE); BARBITURATE SCREEN URINE NEGATIVE (NEGATIVE); BENZODIAZEPINES SCREEN URINE NEGATIVE (NEGATIVE); CANNABINOID SCREEN, URINE NEGATIVE (NEGATIVE); COCAINE SCREEN URINE NEGATIVE (NEGATIVE); METHADONE STAT NEGATIVE (NEGATIVE); OPIATE SCREEN URINE NEGATIVE (NEGATIVE); OXYCODONE STAT NEGATIVE (NEGATIVE); PROPOXYPHENE STAT NEGATIVE (NEGATIVE); TRICYCLIC ANTIDEPRESSANTS SCRE NEGATIVE (NEGATIVE)
[2022-09-01 01:57] VITALS: BP 128/70
--- NOTE | 2022-09-01 06:45 | Diagnostic Imaging Report ---
PROCEDURE: CT abdomen and pelvis with contrast. TECHNIQUE: Multiple contiguous axial images were obtained through the abdomen and pelvis after administration of intravenous contrast. Auto Exposure Controls were utilized during the CT exam to meet ALARA standards for radiation dose reduction. All CT scans use one or more of the following dose optimizing techniques: automated exposure control, MA and/or KvP adjustment based on patient size and exam type or iterative reconstruction. INDICATION: Right upper quadrant abdominal pain COMPARISON: None FINDINGS: The lung bases are clear. The heart is normal in size. There is no pericardial effusion. The liver demonstrates no focal lesions. The spleen appears normal. The pancreas is normal. The adrenal glands appear normal. The kidneys demonstrate no hydronephrosis or enhancing lesions. No calcified stone is seen within the gallbladder. There is no surrounding edema. The bowel loops are nondistended without obstruction seen. There is lrlsddrm-ad-lptjac stool throughout the colon. The appendix appears normal. No free fluid or free air seen. The aorta is normal in caliber. There is no lymphadenopathy. No acute osseous abnormality is seen. There is transitional anatomy at the lumbosacral junction. IMPRESSION: 1. No acute abnormality is seen in the abdomen or pelvis. If there is concern for gallbladder abnormality, ultrasound could be considered. 2. Nmcpotgj-ut-coxaih stool in the colon, please correlate with any history of constipation. Findings regarding potential constipation were not included in the preliminary report, otherwise agree with the preliminary report. These additional findings were communicated to the Emergency Room via the additional findings tracking sheet. Dictated by: Dictated on workstation # [employer]
== END 2022-09-01 01:57 | disposition home or self-care (01) ==
LOC: EDUNIT# 23:05 → ER FS 23:08
DX: K80.12 Calculus of gallbladder with acute and chronic cholecystitis without obstruction (principal); F15.10 Other stimulant abuse, uncomplicated; Z28.310 Unvaccinated for COVID-19
CPT/HCPCS: 36415; 74177; 80053; 80306; 81000; 83690; 85025; Q9967

== ENCOUNTER 2022-10-03 03:02 | Emergency (ER) | payer MEDICAID ==
[~2022-10-03] VITALS: Ht 157.9 cm; Wt 111.1 kg
[2022-10-03 03:04] VITALS: BP 134/79
[2022-10-03] MEDS ORDERED: KETOROLAC 15 MG/ML VIAL IM ONE (03:15)
[2022-10-03] MEDS ORDERED: KETO10TA PO (03:16)
--- NOTE | 2022-10-03 03:16 | ED Abdominal Pain ---
General Chief Complaint: Abdominal/GI Problems Stated Complaint: ABD PAIN Source of Information: Patient, EMS Exam Limitations: No Limitations History of Present Illness Date Seen by Provider: Oct 03, 2022 Time Seen by Provider: 03:08 Initial Comments 22-year-old male presents to the emergency department today via EMS for right upper quadrant abdominal pain. He states he was diagnosed with gallstones about 8 months ago." He had his gallbladder taken out but he ended up [facility]. States he got out [facility] about 2 months ago he has been so focused on staying clean and getting a job that he has not had time to address his gallbladder. This pain initially onset was about 30 minutes prior to arrival described as sharp, stabbing and severe. He states it "dropped me to the floor." He did have a bout of nausea with this associated with some dry heaving but had no vomiting. No fevers or chills. Last bowel was about 2 months ago. He has not tried anything for the pain prior to EMS arrival. In route he was given 50 mcg of fentanyl and 4 mg of Zofran per EMS. Pain is now down to a 2/10 All other systems reviewed and negative except documented per HPI. Voice recognition software was used to help create this chart Allergies and Home Medications Allergies Coded Allergies: azithromycin (Verified Allergy, Unknown, 09/10/22) Patient Home Medication List Home Medication List Reviewed: Yes Hydrocodone/Acetaminophen (Hydrocodone-Acetamin 7.5-325) 7.5 Mg-325 Mg Tablet, 1 EACH PO Q4H PRN for PAIN-BREAKTHROUGH Prescribed by: CHRISTIAN HOFFMAN on 07/26/22 1026 Ketorolac Tromethamine (Ketorolac Tromethamine) 10 Mg Tablet, 10 MG PO TID Prescribed by: JOSE CARLOS JACKSON MD on 10/03/22 0316 Ondansetron (Ondansetron Odt) 4 Mg Tab.rapdis, 4 MG SL Q4H PRN for NAUSEA/VOMITING Prescribed by: VIV FLOYD on 05/15/22 0026 Review of Systems Review of Systems Constitutional: see HPI Past Nhtixuv-Vxetab-Bckksn Hx Patient Social History Tobacco Use?: Yes Use of E-Cig and/or Vaping dev: No Substance use?: Yes Substance type: Methamphetamine Alcohol Use?: No Immunizations Up To Date First/Initial COVID19 Vaccinat: unvaccinated Second COVID19 Vaccination Mike: unvaccinated Third COVID19 Vaccination Date: unvaccinated Seasonal Allergies Seasonal Allergies: No Past Medical History Surgery/Hospitalization HX: tubes in ears Surgeries: Yes (BMT) Respiratory: Yes Asthma Cardiac: No Neurological: Yes (HEAT STROKE X2) Genitourinary: No Gastrointestinal: Yes Gall Bladder Disease Musculoskeletal: No Endocrine: No HEENT: No Cancer: No Psychosocial: Yes Anxiety, PTSD, Depression Integumentary: No Blood Disorders: No Physical Exam Vital Signs Capillary Refill : Height/Weight/BMI Height: '" Weight: lbs. oz. kg; 30.81 BMI Method: General Appearance: WD/WN, no apparent distress HEENT: normal ENT inspection, pharynx normal Neck: non-tender, supple Respiratory: chest non-tender, normal breath sounds, no respiratory distress Cardiovascular: regular rate, rhythm, no murmur Gastrointestinal: normal bowel sounds, soft, no organomegaly, tenderness (Right upper quadrant with voluntary guarding.) Extremities: normal range of motion, non-tender, normal inspection, no pedal edema, no calf tenderness Neurologic/Psychiatric: alert, normal mood/affect, oriented x 3 Skin: normal color, warm/dry Progress/Results/Core Measures Results/Orders My Orders Orders - JOSE CARLOS JACKSON DO Ketorolac Injection (Toradol Injection) (10/03/22 03:15) Medications Given in ED Current Medications Medications Dose Ordered Sig/Mary [place] Route Start Time Stop Time Status Last Admin Dose Admin Ketorolac Tromethamine 15 mg ONCE ONCE IM 10/03/22 03:15 10/03/22 03:16 DC 10/03/22 03:16 15 MG Departure Communication (Admissions) Patient is hemodynamically stable. No evidence for acute cholecystitis. Symptoms consistent with gallstones as per his history. Given Toradol here. He was given 50 mcg of fentanyl prior to arrival and his pain had nearly subsided at the time of arrival. Nontoxic. He is discharged home with recommendation to get his gallbladder out as soon as he can. He was given IV Toradol and discharged with p.o. Toradol. Impression Primary Impression: Biliary colic Additional Impression: Cholelithiasis Qualified Codes: K80.20 - Calculus of gallbladder without cholecystitis without obstruction Disposition: 01 HOME, SELF-CARE Condition: Stable Departure-Patient Inst. Referrals: CARL HARRIS DO (PCP/Family) Primary Care Physician NORBERT LINDSEY MD Patient Instructions: Gallstones (DC) Add. Discharge Instructions: Take the pain medications as prescribed as needed. Increase your fluids at home and rest. Call to get an appointment to get have your gallbladder taken out. All discharge instructions reviewed with patient and/or family. Voiced understanding. Scripts Ketorolac Tromethamine (Ketorolac Tromethamine) 10 Mg Tablet 10 MG PO TID for Pain for 3 Days, #9 TAB Prov: JOSE CARLOS JACSKON DO 10/03/22 JOSE CARLOS JACKSON DO Oct 03, 2022 03:16
== END 2022-10-03 03:35 | disposition home or self-care (01) ==
LOC: EDUNIT# 03:02 → ER FS 03:03
DX: K80.70 Calculus of gallbladder and bile duct without cholecystitis without obstruction (principal); Z28.310 Unvaccinated for COVID-19
CPT/HCPCS: 99283

== ENCOUNTER 2022-11-21 05:27 | Outpatient (CLI) | payer MEDICAID ==
[~2022-11-21] VITALS: Ht 188 cm; Wt 120.9 kg
[2022-11-21] MEDS ORDERED: RT-ALBUINH INH (12:55)
[2022-11-22] MEDS ORDERED: ACHD5005 PO (10:43)
== END 2022-11-21 13:03 ==
LOC: PREOP 05:27
PROVIDERS: ATTEND Surgery
DX: Z01.818 Encounter for other preprocedural examination (principal)

== ENCOUNTER 2022-11-22 10:31 | Day surgery (SDC) | payer MEDICAID ==
--- NOTE | 2022-11-19 20:23 | HISTORY AND PHYSICAL ---
DATE OF SERVICE: 11/22/2022 This is for procedure date 11/22/2022. ATTENDING PRIMARY CARE PHYSICIAN: Dr. Yung Willis. HISTORY OF PRESENT ILLNESS: The patient is a 22-year-old male, who was referred over to us for gallstones. He reports that he has had episodes of right upper quadrant pain and did undergo an ultrasound, which did show a 1.8 cm gallstone in the gallbladder with no evidence of acute cholecystitis. He reports that he has been to several ERs for the pain and has been given short-term pain medications. He reports that he was scheduled to undergo a laparoscopic cholecystectomy in May at [facility], but failed his drug test and his procedure was canceled. He was then scheduled to undergo a laparoscopic cholecystectomy with us in July of this year; however, became anxious and did not proceed with the procedure. He denies any nausea or vomiting as well as no diarrhea or constipation. He does report a history of methamphetamine abuse as well as alcohol abuse and THC. MEDICAL HISTORY: Drug and alcohol abuse. SURGICAL HISTORY: BMT. ALLERGIES: ERYTHROMYCIN. MEDICATIONS: Ketorolac 10 mg q.6 hours p.r.n., Zofran 4 mg q.6 hours p.r.n. FAMILY HISTORY: Paternal grandfather, lung cancer. Paternal grandmother, lung cancer. Father, stroke and hypertension. Mother, hypertension. Siblings, hypertension. SOCIAL HISTORY: Positive for tobacco smoke for 3 years, positive for chewing tobacco for 4 years and history of alcohol abuse. VITAL SIGNS: Blood pressure is 136/80. Current weight is 236 pounds at 6 feet 2 inches. REVIEW OF SYSTEMS: Well-nourished male, in no acute distress. He is not experiencing any shortness of breath or difficulty breathing. No chest pain, palpitations or diaphoresis. No nausea or vomiting. Does report episodes of right upper quadrant abdominal pain. No diarrhea or constipation. No red blood per rectum. No dark tarry stools. No fever or chills. No recent inadvertent weight loss. All other review of systems is negative. PHYSICAL EXAMINATION: CHEST: Clear. Good breath sounds bilaterally. HEART: Regular, no murmurs. EXTREMITIES: No lower extremity edema. Negative Homans sign. HEENT: No scleral icterus. No cervical lymphadenopathy. ABDOMEN: Soft, nondistended. There is tenderness in the right upper abdominal quadrant with palpation. No peritoneal signs. No palpable masses. SKIN: Warm, dry and pink. NEUROLOGIC: Awake, alert and oriented x3. ASSESSMENT AND PLAN: A 22-year-old male with chronic calculous cholecystitis. The risks and benefits of the procedure as well as the procedure and home care instructions were explained to the patient. He verbalized understanding of instructions and agrees to proceed as planned. At this time, we will proceed with scheduling him for a laparoscopic cholecystectomy. It was also discussed with him about proceeding with a urine drug screen before and if this is positive that his surgery would be canceled. Job ID: [id number] DocumentID: [id number] Dictated Date: 11/19/2022 14:44:35 Bondactor Machine Operator Date: 11/19/2022 20:21:00 Dictated By: CHRISTIAN HOFFMAN APRN
[~2022-11-22] VITALS: Ht 188 cm; Wt 120.9 kg
[2022-11-22] VITALS (12 sets, daily range): BP systolic 123–141; BP diastolic 74–88
[~2022-11-22 10:31] MED LIST changes: +RT-ALBUINH INH
--- NOTE | 2022-11-22 10:41 | Progress Note-Pre Operative ---
Pre-Operative Progress Note Date H&P Reviewed: November 22, 2022 Time H&P Reviewed: 10:40 History & Physical: H&P Reviewed, Patient Examed, No changes noted Pre-Operative Diagnosis: Chronic calculous cholecystitis CHRISTIAN HOFFMAN APRN November 22, 2022 10:41
[2022-11-22] MEDS ORDERED: ACHD5005 PO (10:43)
--- NOTE | 2022-11-22 10:43 | Discharge Inst-Surgical ---
D/C Lap Instructions-KIDO Reconcile Patient Problems Problems Reviewed?: Yes New, Converted, or Re-Newed RX: RX on Chart Follow Up Appt in 2 weeks Activity as tolerated No driving for 24 hours No driving while on pain medications Incentive Spirometry use every 2 hours while awake Regular Diet Symptoms to Report: Fever over 101 degree F, Nausea/Vomiting Infection Signs and Symptoms to report: Increased redness, Foul odor of wound, Increased drainage Bathing instructions: May shower Operative Area Clean/Dry; Keep incision clean/dry If any problems/questions: Contact your physician or go to Emergency Room CHRISTIAN HOFFMAN APRN November 22, 2022 10:43
[2022-11-22] MEDS ORDERED: morphine INJ 10 MG/ML 1ML (SYR OR VIAL) IVP PRN (10:45)
[2022-11-22] MEDS ORDERED: ACETAMINOPHEN 325 MG TABLET PO PRN (10:45)
[2022-11-22] MEDS ORDERED: ONDANSETRON 4 MG/2 ML (SDV) Z0FRAN IVP PRN ×2 (10:45→13:00)
[2022-11-22] MEDS ORDERED: LACTATED RINGERS 1,000 ML IV PRN (10:45)
[2022-11-22] MEDS ORDERED: ceFAZolin INJECTION 2,000 MG in NS (IVPB) 50 ML IV ONE (10:45)
[2022-11-22] MEDS ORDERED: HYDROcodone/APAP 5 MG/325 MG (LORTAB) TAB PO ONE (10:45)
[2022-11-22] MEDS ORDERED: BUP/EPI 0.5% 1:200,000 (SENSORCAINE) 30 ML VIAL ONE (10:47)
[2022-11-22] MEDS ORDERED: ONDANSETRON 4 MG/2 ML (SDV) Z0FRAN ONE (10:57)
[2022-11-22] MEDS ORDERED: proPOfol 200 MG/20 ML (DIPRIVAN) VIAL IV ONE (10:57)
[2022-11-22] MEDS ORDERED: LIDOCAINE PF 2% 5 ML (XYLOCAINE) VIAL ONE (10:57)
[2022-11-22] MEDS ORDERED: SEVOFLURANE (ULTANE) 15 ML INHAL SOLN ONE (10:57)
[2022-11-22] MEDS ORDERED: fentaNYL INJ 100 MCG/2 ML AMP ONE (10:58)
[2022-11-22] MEDS ORDERED: MIDAZOLAM 2 MG/2 ML (VERSED) VIAL ONE (10:58)
[2022-11-22 11:02] LABS: AMPHETAMINE SCREEN, URINE NEGATIVE (NEGATIVE); BARBITURATE SCREEN URINE NEGATIVE (NEGATIVE); BENZODIAZEPINES SCREEN URINE NEGATIVE (NEGATIVE); CANNABINOID SCREEN, URINE NEGATIVE (NEGATIVE); COCAINE SCREEN URINE NEGATIVE (NEGATIVE); METHADONE STAT NEGATIVE (NEGATIVE); OPIATE SCREEN URINE NEGATIVE (NEGATIVE); OXYCODONE STAT NEGATIVE (NEGATIVE); PROPOXYPHENE STAT NEGATIVE (NEGATIVE); TRICYCLIC ANTIDEPRESSANTS SCRE NEGATIVE (NEGATIVE)
--- NOTE | 2022-11-22 12:42 | Progress Note-Post Operative ---
Post-Operative Progess Note Surgeon (s)/Chassis Driver (s) Surgeon NORBERT LINDSEY MD Chassis Driver: kaley dale SURVEY RESEARCH MANAGER Pre-Operative Diagnosis Chronic calculous cholecystitis Post-Operative Diagnosis same Procedure & Operative Findings Date of Procedure 11/22/22 Procedure Performed/Findings laparoscopic cholecystectomy Anesthesia Type get Estimated Blood Loss Estimated blood loss (mL): minimal Specimens/Packing Specimens Removed gallbladder NORBERT LINDSEY MD November 22, 2022 12:42
--- NOTE | 2022-11-22 12:51 | Anesthesia-General Post-Op ---
General Patient Condition Mental Status/LOC: Same as Preop Cardiovascular: Satisfactory Nausea/Vomiting: Absent Respiratory: Satisfactory Pain: Controlled Complications: Absent Post Op Complications Complications None Follow Up Care/Instructions Patient Instructions None needed. Anesthesia/Patient Condition Patient Condition Patient is doing well, no complaints, stable vital signs, no apparent adverse anesthesia problems. No complications reported per nursing. SINA JONES CRNA November 22, 2022 12:51
[2022-11-22] MEDS ORDERED: morphine INJ 10 MG/ML 1ML (SYR OR VIAL) IVP ONE (13:00)
[2022-11-22] MEDS ORDERED: MEPERIDINE (DEMEROL) INJ 50 MG/ML IVP ONE (13:00)
[2022-11-22] MEDS ORDERED: fentaNYL INJ 100 MCG/2 ML AMP IVP ONE (13:00)
[2022-11-22] MEDS ORDERED: HYDROcodone/APAP 5 MG/325 MG (LORTAB) TAB ONE (14:17)
--- NOTE | 2022-11-22 14:40 | OPERATIVE REPORT ---
DATE OF SERVICE: 11/22/2022 ATTENDING PRIMARY CARE PHYSICIAN: Dr. Yung Willis. PREOPERATIVE DIAGNOSIS: Symptomatic chronic calculous cholecystitis. POSTOPERATIVE DIAGNOSIS: Symptomatic chronic calculous cholecystitis. PROCEDURE: Laparoscopic cholecystectomy. SURGEON: Norbert Lindsey MD PASTRY DECORATOR: Dougie Ramirez APRN ANESTHESIA: General endotracheal. ESTIMATED BLOOD LOSS: Minimal. FINDINGS: Solitary large gallstone. DISPOSITION: The patient tolerated the procedure well. INDICATIONS: The patient is a 22-year-old male referred over to us for symptomatic cholelithiasis. He has had multiple episodes of the right upper abdominal quadrant pain on an intermittent basis, usually after eating a meal. He did have an ultrasound performed, which did show a 2 cm gallstone; however, no evidence of acute cholecystitis. Since that time, he has had multiple visits to the Emergency Department for short-term pain relief. At this time, he understands the risks and benefits of laparoscopic cholecystectomy, which he is in full understanding of and I would like to proceed with the surgery. DESCRIPTION OF PROCEDURE: The patient was brought to the operating room, laid supine on the table. After adequate IV pain and sedative medications and general endotracheal intubation, the abdomen was prepped and draped in standard surgical fashion. A 0.5% Marcaine with epinephrine was used to anesthetize the overlying skin in the left upper abdominal quadrant and a transverse skin incision made using #15 blade. An 0 silk suture was applied to the medial aspect of the incision for retraction and a Veress needle inserted with a low opening pressure of 0 mmHg. The abdomen was then insufflated to 15 mmHg pressure. The Veress needle removed and a 5 mm XL trocar placed followed by a 5 mm 45-degree angle laparoscope visualizing the peritoneal cavity. A 4-quadrant abdominal exploration was performed. Slightly distended gallbladder, no gallbladder wall thickening. Under direct visualization, we then proceeded to place a supraumbilical 10 mm port after the skin and peritoneal lining were anesthetized using 0.5% Marcaine with epinephrine and a transverse skin incision made using a #15 blade. In a similar manner, a right upper abdominal quadrant 5 mm port was placed. The patient was then placed in reverse Trendelenburg position as well as plane right side up, left side down. The fundus of the gallbladder was then retracted anteriorly and superiorly. The hepatoduodenal ligament was then dissected bluntly as well as using cautery on the hook instrument as well as the [place] dissector. The entire critical view of safety was identified including the triangle of Calot. The cystic duct and artery as the only 2 structures going into the gallbladder as well as the cystic plate behind the proximal gallbladder. A timeout was then taken and the cystic duct and artery were then clipped proximally and distally and cut with EndoShears. The gallbladder was then dissected off of the liver bed using cautery on the hook instrument with visualization of good hemostasis as well as no leaking ducts of Luschka. The gallbladder was removed through the 10 mm port site using an EndoCatch bag. The 10 mm port site fascia and peritoneum were then closed under direct visualization using a Frank-Brian device and an 0 Vicryl suture. The abdomen was desufflated. The remaining ports removed. All skin incisions were closed using 4-0 Monocryl running subcuticular sutures. Wounds were then cleaned and covered with Dermabond. The patient tolerated the procedure well. We will start IV normal pain medication as well as a clear liquid diet. Once he is tolerating clears, has good pain control with oral pain medications, ambulating well, we will discharge him home where he will be instructed to do no heavy lifting or exertion for the next 2 weeks. Job ID: [id number] DocumentID: [id number] Dictated Date: 11/22/2022 12:48:40 Administration Assistant Date: 11/22/2022 14:38:00 Dictated By: NORBERT LINDSEY MD
== END 2022-11-22 15:10 | disposition home or self-care (01) ==
LOC: SDC 10:31
PROVIDERS: ATTEND Surgery
DX: K80.10 Calculus of gallbladder with chronic cholecystitis without obstruction (principal); F17.220 Nicotine dependence, chewing tobacco, uncomplicated; Z28.310 Unvaccinated for COVID-19
CPT/HCPCS: 80306; 87081; 88304

== ENCOUNTER 2023-01-23 17:12 | Emergency (ER) | payer MEDICAID ==
[~2023-01-23 17:12] MED LIST changes: +ACHD5005 PO
[2023-01-23] MEDS ORDERED: NS IV 1000 ML 1,000 ML IV STA (17:27)
[2023-01-23] MEDS ORDERED: KETOROLAC 15 MG/ML VIAL IVP STA (17:27)
--- NOTE | 2023-01-23 17:34 | ED General ---
General Chief Complaint: Exposure Stated Complaint: HEAT EXHAUSTION Source of Information: Patient History of Present Illness Date Seen by Provider: Jan 23, 2023 Time Seen by Provider: 17:16 Initial Comments 22-year-old male presenting with complaints of feeling overheated. He states that he was working outside in the heat all day and then had to run some errands this afternoon. He started feeling lightheaded and dizzy. He states that as he got out of the car at 1 point he felt like the right side of his body went numb. That quickly came back to normal for him. He denies having any nausea, vomiting, shortness of breath, chest pain, abdominal pain, pain with urination. He has had no nausea or vomiting or diarrhea. He states he has a mild headache. He reports that he feels like he has been drinking fluids but still felt like he was dry. Because of feeling so bad and having a few seconds of feeling his right side of his body go numb he came to the emergency department to be seen. He reports he feels fatigued and rundown. He ambulated in from the parking lot and was able to walk to the bathroom and the room for exam. He also reports that he is bipolar and was recently started on Abilify and was unsure if that was contributing to how he was feeling. Timing/Duration: 4-6 Hours Severity: Severe Modifying Factors: worse with Movement (activity makes him feel worse) Associated Systoms: No Chest Pain, No Cough, No Diaphoresis, No Fever/Chills; Headaches; No Loss of Appetite; Malaise; No Nausea/Vomiting, No Rash, No Seizure, No Shortness of Air, No Syncope; Weakness Allergies and Home Medications Allergies Coded Allergies: azithromycin (Verified Allergy, Unknown, HIVES, 11/21/22) Patient Home Medication List Home Medication List Reviewed: Yes Albuterol Sulfate (Ventolin Hfa) 1 Puff Puff, 2 PUFF INH Q4H, (Reported) Entered as Reported by: MATILDA MASON on 11/21/22 1255 Hydrocodone/Acetaminophen (Hydrocodone-Acetamin 5-325 mg) 5 Mg-325 Mg Tablet, 1 TAB PO Q4H PRN for PAIN-MODERATE (5-7) Prescribed by: CHRISTIAN HOFFMAN on 11/22/22 1043 Review of Systems Review of Systems Constitutional: No chills; dizziness; No fever EENTM: no symptoms reported Respiratory: no symptoms reported Cardiovascular: no symptoms reported Gastrointestinal: no symptoms reported Genitourinary: no symptoms reported Musculoskeletal: no symptoms reported Skin: no symptoms reported Psychiatric/Neurological: See HPI Past [id number] Hx Patient Social History Tobacco Use?: Yes Tobacco type used: Cigarettes Smoking Status: Current Everyday Smoker Use of E-Cig and/or Vaping dev: No Substance use?: No Alcohol Use?: Yes Alcohol Frequency: Once in a while Pt feels they are or have been: No Immunizations Up To Date First/Initial COVID19 Vaccinat: unvaccinated Second COVID19 Vaccination Mike: unvaccinated Third COVID19 Vaccination Date: unvaccinated Seasonal Allergies Seasonal Allergies: No Past Medical History Surgery/Hospitalization HX: tubes in ears; Bipolar Surgeries: Yes (BMT) Respiratory: Yes Asthma Currently Using CPAP: No Currently Using BIPAP: No Cardiac: Yes Hypertension Neurological: Yes (HEAT STROKE X2) Genitourinary: No Gastrointestinal: Yes Gall Bladder Disease Musculoskeletal: No Endocrine: No HEENT: No Cancer: No Psychosocial: Yes Anxiety, PTSD, Depression Integumentary: No Blood Disorders: No Physical Exam Vital Signs Vital Signs - First Documented 01/23/23 17:20 Temp 36.9 Pulse 96 Resp 16 B/P (MAP) 149/88 (108) Pulse Ox 100 O2 Delivery Room Air Capillary Refill : Height, Weight, BMI Height: '" Weight: lbs. oz. kg; 34.20 BMI Method: General Appearance: WD/WN, Other (moving and speaking slowly) HEENT: PERRL/EOMI, Pharynx Normal Neck: Full Range of Motion, Normal Inspection, Non Tender, Supple Respiratory: Chest Non Tender, Lungs Clear, Normal Breath Sounds, No Accessory Muscle Use, No Respiratory Distress Cardiovascular: Regular Rate, Rhythm, Normal Peripheral Pulses Gastrointestinal: Normal Bowel Sounds, No Pulsatile Mass, Non Tender, Soft Extremity: Normal Capillary Refill, Normal Inspection, Normal Range of Motion, No Pedal Edema Neurologic/Psychiatric: Alert, Oriented x3, assistant cook II-XII Norm as Tested, Other (flat affect and slow to respond) Skin: Normal Color, Warm/Dry Progress/Results/Core Measures Suspected Sepsis SIRS Temperature: Pulse: Respiratory Rate: Laboratory Tests 01/23/23 17:25: White Blood Count 13.2H Blood Pressure / Mean: Laboratory Tests 7/19/23 17:25: Creatinine 0.91, Platelet Count 233, Total Bilirubin 0.5 Results/Orders Lab Results Laboratory Tests Test 01/23/23 17:20 01/23/23 17:25 Range/Units Urine Color YELLOW Urine Clarity CLEAR Urine pH 6.5 5-9 Urine Specific [place] 1.025 H 1.016-1.022 Urine Protein NEGATIVE NEGATIVE Urine Glucose (UA) NEGATIVE NEGATIVE Urine Ketones NEGATIVE NEGATIVE Urine Nitrite NEGATIVE NEGATIVE Urine Bilirubin NEGATIVE NEGATIVE Urine Urobilinogen 0.2 < = 1.0 MG/DL Urine Leukocyte Esterase NEGATIVE NEGATIVE Urine RBC (Auto) NEGATIVE NEGATIVE Urine RBC NONE /HPF Urine WBC RARE /HPF Urine Squamous Epithelial Cells RARE /HPF Urine Crystals PRESENT H /LPF Urine Amorphous Sediment FEW DI PHOSPHATE H /LPF Urine Bacteria NEGATIVE /HPF Urine Casts NONE /LPF Urine Mucus MODERATE H /LPF Urine Culture Indicated NO White Blood Count 13.2 H 4.3-11.0 10^3/uL Red Blood Count 5.47 4.30-5.52 10^6/uL Hemoglobin 15.6 13.3-17.7 g/dL Hematocrit 46 40-54 % Mean Corpuscular Volume 85 80-99 fL Mean Corpuscular Hemoglobin 29 25-34 pg Mean Corpuscular Hemoglobin Concent 34 32-36 g/dL Red Cell Distribution Width 12.9 10.0-14.5 % Platelet Count 233 130-400 10^3/uL Mean Platelet Volume 9.4 9.0-12.2 fL Immature Granulocyte % (Auto) 0 % Neutrophils (%) (Auto) 60 42-75 % Lymphocytes (%) (Auto) 25 12-44 % Monocytes (%) (Auto) 10 0-12 % Eosinophils (%) (Auto) 5 0-10 % Basophils (%) (Auto) 1 0-10 % Neutrophils # (Auto) 7.8 1.8-7.8 10^3/uL Lymphocytes # (Auto) 3.3 1.0-4.0 10^3/uL Monocytes # (Auto) 1.3 H 0.0-1.0 10^3/uL Eosinophils # (Auto) 0.6 H 0.0-0.3 10^3/uL Basophils # (Auto) 0.1 0.0-0.1 10^3/uL Immature Granulocyte # (Auto) 0.0 0.0-0.1 10^3/uL Sodium Level 140 135-145 MMOL/L Potassium Level 4.2 3.6-5.0 MMOL/L Chloride Level 101 98-107 MMOL/L Carbon Dioxide Level 27 21-32 MMOL/L Anion Gap 12 5-14 MMOL/L Blood Urea Nitrogen 20 H 7-18 MG/DL Creatinine 0.91 0.60-1.30 MG/DL Estimat Glomerular Filtration Rate 124 BUN/Creatinine Ratio 22 Glucose Level 103 70-105 MG/DL Calcium Level 10.0 8.5-10.1 MG/DL Corrected Calcium 8.5-10.1 MG/DL Total Bilirubin 0.5 0.1-1.0 MG/DL Aspartate Amino Transf (AST/SGOT) 25 5-34 U/L Alanine Aminotransferase (ALT/SGPT) 36 0-55 U/L Alkaline Phosphatase 91 40-136 U/L Total Protein 7.5 6.4-8.2 GM/DL Albumin 4.6 H 3.2-4.5 GM/DL My Orders Orders - TANYA WALLACE MD Comprehensive Metabolic Panel (01/23/23 17:27) Ua Culture If Indicated (01/23/23 17:27) Ed Iv/Invasive Line Start (01/23/23 17:27) Cbc With Automated Diff (01/23/23 17:27) Ns Iv 1000 Ml (Sodium Chloride 0.9%) (01/23/23 17:27) Ketorolac Injection (Toradol Injection) (01/23/23 17:27) Vital Signs/I&O 01/23/23 01/23/23 17:20 18:34 Temp 36.9 36.9 Pulse 96 96 Resp 16 16 B/P (MAP) 149/88 (108) 149/88 Pulse Ox 100 100 O2 Delivery Room Air Room Air Capillary Refill : Progress Note #1: Progress Note Potential diagnosis of dehydration, heat exhaustion, acute kidney injury, urinary tract infection, medication side effect, electrolyte abnormality. Obtain urinalysis to evaluate his hydration and look for infection. His vital signs were hemodynamically stable with blood pressure 148/90 and heart rate in the 90s with an oxygen saturation of 98 to 100% on room air. He was afebrile. Establish peripheral IV access and send lab for complete blood count, comprehensive metabolic profile, urinalysis. Ordered normal saline 1 L IV fluid bolus for hydration, Toradol 15 mg IV for headache. We will encourage him to drink oral fluids in addition to the IV fluids. Progress Note #2: Time: 17:44 Progress Note Complete blood count shows a slight elevation of his white blood cell count to 13.2 with a normal differential. His hemoglobin was normal at 15.6. His comprehensive metabolic panel did not show any acute significant electrolyte abnormality as he had a normal BUN of 20 and creatinine of 0.91. His glucose was slightly elevated to 124. His LFTs and other electrolytes were all in the normal range. His urinalysis did demonstrate some dehydration with specific gravity of 1.025 and some urine crystals. There is no nitrites, leukocyte esterase, bacteria, white blood cells to indicate a UTI. He continues to be hemodynamically stable so now that he has had a Liter of NS by IV bolus will discharge to home to encourage him to keep drinking more fluids. Check with pcp for continued concerns. Try to avoid being out in exc essive heat and make sure he drinks plenty of water and electrolyte drinks to stay hydrated. Departure Impression Primary Impression: Heat exposure Qualified Codes: T67.9XXA - Effect of heat and light, unspecified, initial encounter Additional Impression: Dehydration Disposition: 01 HOME, SELF-CARE Condition: Stable Departure-Patient Inst. Decision time for Depature: 18:14 Referrals: CARL HARRIS DO (PCP/Family) Primary Care Physician Patient Instructions: Heat Illness ED, Dehydration, Adult ED Add. Discharge Instructions: Try to avoid being outside in the extreme heat. Make sure you are drinking plenty of water and electrolyte drinks to stay hydrated. You could look at your urine when you urinate and make sure that it is light colored or clear. The darker yellow or orange the urine color the more dehydrated you can be and you need to drink more fluids. All discharge instructions reviewed with patient and/or family. Voiced understanding. Work/School Note: Work Release Form Date Seen in the Emergency Department: Jan 23, 2023 Return to Work: Jan 24, 2023 Restrictions: No Restrictions Other Restrictions Listed Below: Try to stay out of extreme heat and stay well hydrated TANYA WALLACE MD Jan 23, 2023 17:34
[2023-01-23 17:36] LABS: BASOPHILS # (AUTO) 0.1 10^3/uL (0.0-0.1); BASOPHILS % (AUTO) 1 % (0-10); EOSINOPHILS # (AUTO) 0.6 10^3/uL (0.0-0.3); EOSINOPHILS % (AUTO) 5 % (0-10); HEMATOCRIT 46 % (40-54); HEMOGLOBIN 15.6 g/dL (13.3-17.7); LYMPHOCYTES # (AUTO) 3.3 10^3/uL (1.0-4.0); LYMPHOCYTES % (AUTO) 25 % (12-44); MEAN CORPUSCULAR HEMOGLOBIN 29 pg (25-34); MEAN CORPUSCULAR HGB CONC 34 g/dL (32-36); MEAN CORPUSCULAR VOLUME 85 fL (80-99); MEAN PLATELET VOLUME 9.4 fL (9.0-12.2); MONOCYTES # (AUTO) 1.3 10^3/uL (0.0-1.0); MONOCYTES % (AUTO) 10 % (0-12); NEUTROPHILS # (AUTO) 7.8 10^3/uL (1.8-7.8); NEUTROPHILS % (AUTO) 60 % (42-75); PLATELET COUNT 233 10^3/uL (130-400); WHITE BLOOD COUNT 13.2 10^3/uL (4.3-11.0)
[2023-01-23 17:38] LABS: BILIRUBIN,URINE NEGATIVE (NEGATIVE); CLARITY,URINE CLEAR; COLOR,URINE YELLOW; GLUCOSE, URINE (UA) NEGATIVE (NEGATIVE); KETONES,URINE NEGATIVE (NEGATIVE); LEUKOCYTE ESTERASE ,URINE NEGATIVE (NEGATIVE); NITRITE,URINE NEGATIVE (NEGATIVE); PH,URINE 6.5 (5-9); PROTEIN,URINE NEGATIVE (NEGATIVE)
[2023-01-23 17:51] LABS: BACTERIA,URINE NEGATIVE /HPF; SQUAMOUS EPITHELIAL CELL,UR RARE /HPF; WBC,URINE RARE /HPF
[2023-01-23 17:52] LABS: AMORPHOUS SEDIMENT,UR FEW AMOR PHOSPHATE /LPF
[2023-01-23 18:06] LABS: ALANINE AMINOTRANSFERASE 36 U/L (0-55); ALBUMIN 4.6 GM/DL (3.2-4.5); ALKALINE PHOSPHATASE 91 U/L (40-136); BILIRUBIN,TOTAL 0.5 MG/DL (0.1-1.0); BUN/CREATININE RATIO 22; CARBON DIOXIDE 27 MMOL/L (21-32); CHLORIDE 101 MMOL/L (98-107); CREATININE SERUM 0.91 MG/DL (0.60-1.30); GFR ESTIMATED 124; GLUCOSE 103 MG/DL (70-105); POTASSIUM 4.2 MMOL/L (3.6-5.0); SODIUM 140 MMOL/L (135-145); TOTAL PROTEIN 7.5 GM/DL (6.4-8.2)
[2023-01-23 18:34] VITALS: BP 149/88
== END 2023-01-23 18:34 | disposition home or self-care (01) ==
LOC: EDUNIT# 17:12 → ER FS 17:14
DX: T67.5XXA Heat exhaustion, unspecified, initial encounter (principal); E86.0 Dehydration; F17.210 Nicotine dependence, cigarettes, uncomplicated; Z28.310 Unvaccinated for COVID-19; X30.XXXA Exposure to excessive natural heat, initial encounter
CPT/HCPCS: 36415; 80053; 81000; 85025; 96361; 96374

== ENCOUNTER 2023-02-28 04:34 | Emergency (ER) | payer MEDICAID ==
[~2023-02-28] VITALS: Ht 185.5 cm; Wt 131.0 kg
[2023-02-28 04:37] VITALS: BP 140/80
--- NOTE | 2023-02-28 04:53 | ED General ---
General Chief Complaint: General Problems/Pain Stated Complaint: DEHYDRATED Nursing Triage Note: PT AMB TO [facility] C/O POSS DEHYDRATION D/T ORANGE URINE. PT A&OX4. Source of Information: Patient Exam Limitations: No Limitations History of Present Illness Date Seen by Provider: Feb 28, 2023 Time Seen by Provider: 04:44 Initial Comments 22-year-old male presents thinking he may be dehydrated because his urine has an orange tinge to it. He was seen in the urgent care yesterday and told he did not have a urinary tract infection there is no blood in his urine. He has no nausea and states he has increased his fluids. This has not seem to help his symptoms. All other systems reviewed and negative except documented per HPI. Voice recognition software was used to help create this chart Allergies and Home Medications Allergies Coded Allergies: azithromycin (Verified Allergy, Unknown, HIVES, 11/21/22) Patient Home Medication List Home Medication List Reviewed: Yes Albuterol Sulfate (Ventolin Hfa) 1 Puff Puff, 2 PUFF INH Q4H, (Reported) Entered as Reported by: MATILDA MASON on 11/21/22 1255 Hydrocodone/Acetaminophen (Hydrocodone-Acetamin 5-325 mg) 5 Mg-325 Mg Tablet, 1 TAB PO Q4H PRN for PAIN-MODERATE (5-7) Prescribed by: CHRISTIAN HOFFMAN on 11/22/22 1043 Review of Systems Review of Systems Constitutional: see HPI Past Qjhwojv-Zgknva-Xpiykm Hx Patient Social History Tobacco Use?: Yes Tobacco type used: Cigarettes Smoking Status: Current Everyday Smoker Use of E-Cig and/or Vaping dev: No Substance use?: No Alcohol Use?: No Immunizations Up To Date First/Initial COVID19 Vaccinat: unvaccinated Second COVID19 Vaccination Mike: unvaccinated Third COVID19 Vaccination Date: unvaccinated Seasonal Allergies Seasonal Allergies: No Past Medical History Surgery/Hospitalization HX: tubes in ears; Bipolar Surgeries: Yes (BMT) Respiratory: Yes Asthma Currently Using CPAP: No Currently Using BIPAP: No Cardiac: Yes Hypertension Neurological: Yes (HEAT STROKE X2) Genitourinary: No Gastrointestinal: Yes Gall Bladder Disease Musculoskeletal: No Endocrine: No HEENT: No Cancer: No Psychosocial: Yes Anxiety, PTSD, Depression Integumentary: No Blood Disorders: No Physical Exam Vital Signs Vital Signs - First Documented 02/28/23 04:37 Temp 36.6 Pulse 84 Resp 18 B/P (MAP) 140/80 (100) Pulse Ox 98 O2 Delivery Room Air Capillary Refill : Less Than 3 Seconds Height, Weight, BMI Height: '" Weight: lbs. oz. kg; 38.00 BMI Method: General Appearance: No Apparent Distress, WD/WN HEENT: Normal ENT Inspection, Pharynx Normal Respiratory: Chest Non Tender, Lungs Clear, Normal Breath Sounds, No Accessory Muscle Use, No Respiratory Distress Cardiovascular: Regular Rate, Rhythm, No Murmur Gastrointestinal: Normal Bowel Sounds, No Organomegaly, Non Tender, Soft Back: No CVA Tenderness Neurologic/Psychiatric: Alert, Oriented x3 Skin: Normal Color, Warm/Dry Progress/Results/Core Measures Suspected Sepsis SIRS Temperature: Pulse: 84 Respiratory Rate: 18 Blood Pressure 140 /80 Mean: 100 Results/Orders Vital Signs/I&O 02/28/23 04:37 Temp 36.6 Pulse 84 Resp 18 B/P (MAP) 140/80 (100) Pulse Ox 98 O2 Delivery Room Air Capillary Refill : Less Than 3 Seconds Blood Pressure Mean: 100 Departure Communication (Admissions) Patient is hemodynamically stable. Unable to elicit any abdominal pain on exam. I offered to check to see her here and he states he does not think he can pee. He did have a urine yesterday which she reports was negative at urgent care. He has no abdominal pain, no other concerning symptoms. There is no evidence of emergent medical condition at this time. No indication for further work-up he re. Impression Primary Impression: Abnormal urine color Disposition: HOME, SELF-CARE Condition: Stable Departure-Patient Inst. Referrals: CARL HARRIS DO (PCP/Family) Primary Care Physician Add. Discharge Instructions: You were seen in the emergency department today for abnormal urine color. As discussed it is unclear what this is caused from at this time. Recommend you continue to increase your fluids at home and follow-up with your primary doctor should your symptoms persist. All discharge instructions reviewed with patient and/or family. Voiced understanding. JOSE CARLOS JACKSON DO Feb 28, 2023 04:53
== END 2023-02-28 04:55 | disposition home or self-care (01) ==
LOC: EDUNIT# 04:34 → ER FS 04:36
DX: R82.998 Other abnormal findings in urine (principal); F17.210 Nicotine dependence, cigarettes, uncomplicated; Z28.310 Unvaccinated for COVID-19
CPT/HCPCS: 99281